=== PATIENT | male | born 1945 | race Caucasian/White ===

== ENCOUNTER 2016-03-17 09:04 | Outpatient (CLI) | payer MEDICARE, OTHER | END 2016-03-17 09:05 | disposition home or self-care (01) | DX: I10 Essential (primary) hypertension (principal); E11.9 Type 2 diabetes mellitus without complications; E78.5 Hyperlipidemia, unspecified ==

== ENCOUNTER 2016-04-19 10:09 | Outpatient (CLI) | payer MEDICARE, OTHER | END 2016-04-19 10:10 | disposition home or self-care (01) | DX: M17.0 Bilateral primary osteoarthritis of knee (principal) ==

== ENCOUNTER 2016-08-04 07:31 | Outpatient (CLI) | payer MEDICARE, OTHER ==
[2016-08-04 08:12] LABS: BILIRUBIN,URINE NEGATIVE (NEGATIVE)
[2016-08-04 08:19] LABS: WBC,URINE 0-3 /HPF (0-3)
== END 2016-08-04 07:32 | disposition home or self-care (01) ==
LOC: LAB 07:31
PROVIDERS: ATTEND Family Medicine
DX: R31.9 Hematuria, unspecified (principal); Z12.5 Encounter for screening for malignant neoplasm of prostate
CPT/HCPCS: 36415; 81001; G0103; 84153

== ENCOUNTER 2016-09-19 07:31 | Outpatient (CLI) | payer MEDICARE, OTHER ==
[2016-09-19 07:57] LABS: BILIRUBIN,URINE NEGATIVE (NEGATIVE)
[2016-09-19 08:03] LABS: WBC,URINE 0-3 /HPF (0-3)
== END 2016-09-19 07:32 | disposition home or self-care (01) ==
LOC: LAB 07:31
PROVIDERS: ATTEND Family Medicine
DX: R31.9 Hematuria, unspecified (principal); Z12.5 Encounter for screening for malignant neoplasm of prostate
CPT/HCPCS: 36415; 81001; G0103; 84153

== ENCOUNTER 2016-09-22 07:10 | Outpatient (CLI) | payer MEDICARE, OTHER ==
--- NOTE | 2016-09-22 17:19 | CT Report ---
CT CHEST WITHOUT CONTRAST: 09/22/2016 CLINICAL INDICATION: A 70-year-old with 60-pack year history of smoking, current smoker, for lung ca ncer screening. TECHNIQUE: Axial CT images of the chest were obtained without intravenous contrast, using low-dose s creening technique. COMPARISON: Previous chest CT 04/08/2013. FINDINGS: The heart and great vessels demonstrate moderate atherosclerotic calcification. No hilar or mediastinal lymphadenopathy is present. The lungs again demonstrate emphysema and peripheral fibr osis. The previously noted nodule in the anterior right upper lobe is stable, measuring 10 mm. Two stable nodules are seen in the left upper lobe, each measuring 5 mm. A stable 5 mm nodule is seen in the right posterolateral lower lobe, and stable fissural nodules are noted in the right middle lobe. Fibrosis has increased from previous. No effusion or pneumothorax is seen. Limited evaluation of upper abdominal structures demonstrates hepatic and renal cysts. The adrenal glands appear unremarka ble. Osseous structures demonstrate degenerative changes. IMPRESSION: MULTIPLE BILATERAL PULMONARY NODULES, STABLE, WITH EMPHYSEMA AND FIBROSIS. RECOMMENDATION: Continue annual screening with low-dose CT in 12 months. Lung-RADS category 2, benign findings. In accordance with CT protocol optimization, one or more of the following dose reduction techniques w ere utilized for this exam: automated exposure control, adjustment of mA and/or KV based on patient size, or use of iterative reconstructive technique. JOB #: [id number] EXT JOB #:[id number]
== END 2016-09-22 07:11 | disposition home or self-care (01) ==
LOC: DI 07:10
PROVIDERS: ATTEND Family Medicine
DX: Z12.2 Encounter for screening for malignant neoplasm of respiratory organs (principal); R91.8 Other nonspecific abnormal finding of lung field; J43.9 Emphysema, unspecified; J84.10 Pulmonary fibrosis, unspecified; F17.210 Nicotine dependence, cigarettes, uncomplicated

== ENCOUNTER 2016-11-29 08:54 | Day surgery (SDC) | payer MEDICARE, OTHER ==
[2016-11-29] MEDS ORDERED: LACTATED RINGERS 1,000 ML IV ONE (08:59)
[2016-11-29] MEDS ORDERED: fentaNYL 100 MCG/2 ML VIAL IVP ONE (09:20)
[2016-11-29] MEDS ORDERED: MIDAZOLAM 2 MG/2 ML VIAL IVP ONE (09:20)
[2016-11-29 10:56] VITALS: BP 152/68
== END 2016-11-29 08:55 | disposition home or self-care (01) ==
LOC: SDS 08:54
PROVIDERS: ATTEND Surgery
PROC: 0DBP8ZX Excision of Rectum, Via Natural or Artificial Opening Endoscopic, Diagnostic (ICD-10-PCS; 2016-11-29)
PROC: 0DBE8ZX Excision of Large Intestine, Via Natural or Artificial Opening Endoscopic, Diagnostic (ICD-10-PCS; principal; 2016-11-29 10:00)
DX: Z12.11 Encounter for screening for malignant neoplasm of colon (principal); D12.5 Benign neoplasm of sigmoid colon; D12.3 Benign neoplasm of transverse colon; K62.1 Rectal polyp; K57.30 Diverticulosis of large intestine without perforation or abscess without bleeding; I10 Essential (primary) hypertension; E11.9 Type 2 diabetes mellitus without complications; E78.5 Hyperlipidemia, unspecified; I71.4 Abdominal aortic aneurysm, without rupture; Z79.82 Long term (current) use of aspirin
CPT/HCPCS: 45380; 45384; J7120

== ENCOUNTER 2017-02-09 08:14 | Outpatient (CLI) | payer MEDICARE, OTHER ==
[2017-02-09 08:55] LABS: BASOPHILS # (AUTO) 0.1 10^3/uL (0.0-0.1); BASOPHILS % (AUTO) 0.8 %; EOSINOPHILS # (AUTO) 0.4 10^3/uL (0.0-0.7); EOSINOPHILS % (AUTO) 4.4 %; HCT - HEMATOCRIT 43.4 % (42.0-52.0); HGB - HEMOGLOBIN 15.1 g/dL (14.0-18.0); LYMPHOCYTES # (AUTO) 4.1 10^3/uL (1.5-3.5); LYMPHOCYTES % (AUTO) 48.9 %; MEAN CORPUSCULAR HEMOGLOBIN 33.7 pg (27.0-31.0); MEAN CORPUSCULAR HGB CONC 34.8 g/dL (32.0-36.0); MEAN PLATELET VOLUME 8.1 fL (7.4-11.4); MONOCYTES # (AUTO) 0.8 10^3/uL (0.0-1.0); MONOCYTES % (AUTO) 9.3 %; NEUTROPHILS # (AUTO) 3.1 10^3/uL (1.5-6.6); NEUTROPHILS % (AUTO) 36.6 %; RED BLOOD COUNT 4.48 10^6/uL (4.70-6.10); UNCORRECTED WHITE BLOOD COUNT 8.5 x10^3/uL; WHITE BLOOD COUNT 8.5 x10^3/uL (4.8-10.8)
[2017-02-09 08:56] LABS: HEMOGLOBIN A1C 0.72 g/dL
[2017-02-09 09:11] LABS: ALBUMIN/GLOBULIN RATIO 1.9 (1.0-2.2); BILIRUBIN,TOTAL 0.8 mg/dL (0.2-1.0); BUN - BLOOD UREA NITROGEN 21 mg/dL (6-20); CALCIUM 9.1 mg/dL (8.5-10.3); CARBON DIOXIDE - CO2 26 mmol/L (21-32); CHLORIDE 100 mmol/L (101-111); CHOL/HDL RATIO 2.4 (<5.0); CHOLESTEROL 135 mg/dL; CREATININE 1.1 mg/dL (0.6-1.2); GFR - MDRD 66 (>89); GLUCOSE 121 mg/dL (70-100); HDL CHOLESTEROL 56 mg/dL; LDL/HDL RATIO 1.1 (<3.6); POTASSIUM 4.3 mmol/L (3.5-5.0); SODIUM 139 mmol/L (135-145); TRIGLYCERIDES 102 mg/dL; VLDL CHOLESTEROL 20 mg/dL
[2017-02-09 09:40] LABS: PSA FREE 0.78 ng/mL (0.16-2.81)
[2017-02-09 09:41] LABS: PSA TOTAL 4.75 ng/mL (0.000-2.000)
== END 2017-02-09 08:15 | disposition home or self-care (01) ==
LOC: LAB 08:14
PROVIDERS: ATTEND Family Medicine
DX: E11.9 Type 2 diabetes mellitus without complications (principal); R97.20 Elevated prostate specific antigen [PSA]
CPT/HCPCS: 36415; 80053; 80061; 83036; 84154; 84443; 85025

== ENCOUNTER 2017-09-08 07:45 | Outpatient (CLI) | payer MEDICARE, OTHER ==
[2017-09-08 08:18] LABS: HB2 TOTAL 16.2 g/dL; HEMOGLOBIN A1C 0.79 g/dL; HEMOGLOBIN A1C % 6.6 % (4.6-6.2)
[2017-09-08 08:23] LABS: CALCIUM 8.9 mg/dL (8.5-10.3); CREATININE 1.1 mg/dL (0.6-1.2)
[2017-09-08 08:48] LABS: PSA FREE 0.64 ng/mL (0.16-2.81)
[2017-09-08 08:49] LABS: PSA TOTAL 4.93 ng/mL (0.000-2.000)
== END 2017-09-08 07:46 | disposition home or self-care (01) ==
LOC: LAB 07:45
PROVIDERS: ATTEND Family Medicine
DX: E11.9 Type 2 diabetes mellitus without complications (principal); R97.20 Elevated prostate specific antigen [PSA]
CPT/HCPCS: 36415; 80048; 82043; 83036; 84154

== ENCOUNTER 2018-03-22 08:59 | Outpatient (CLI) | payer MEDICARE, OTHER ==
[2018-03-22 09:33] LABS: ALBUMIN 4.4 g/dL (3.2-5.5); ALBUMIN/GLOBULIN RATIO 1.5 (1.0-2.2); ALKALINE PHOSPHATASE 75 IU/L (42-121); ALT ALANINE AMINOTRANSFERASE 19 IU/L (10-60); AST ASPARTATE AMINOTRANSFERASE 22 IU/L (10-42); BILIRUBIN,TOTAL 0.5 mg/dL (0.2-1.0); BUN - BLOOD UREA NITROGEN 19 mg/dL (6-20); CARBON DIOXIDE - CO2 27 mmol/L (21-32); CHLORIDE 99 mmol/L (101-111); CHOL/HDL RATIO 2.1 (<5.0); CHOLESTEROL 131 mg/dL; GFR - MDRD 73 (>89); GLUCOSE 119 mg/dL (70-100); HDL CHOLESTEROL 61 mg/dL; LDL CHOLESTEROL,CALCULATED 58 mg/dL; SODIUM 137 mmol/L (135-145); TOTAL PROTEIN 7.3 g/dL (6.7-8.2); VLDL CHOLESTEROL 12 mg/dL
[2018-03-22 09:48] LABS: BASOPHILS % (AUTO) 0.5 %; EOSINOPHILS # (AUTO) 0.3 10^3/uL (0.0-0.7); EOSINOPHILS % (AUTO) 2.6 %; HGB - HEMOGLOBIN 14.4 g/dL (14.0-18.0); LYMPHOCYTES # (AUTO) 4.5 10^3/uL (1.5-3.5); LYMPHOCYTES % (AUTO) 46.8 %; MEAN CORPUSCULAR HEMOGLOBIN 33.9 pg (27.0-31.0); MEAN CORPUSCULAR HGB CONC 34.3 g/dL (32.0-36.0); MEAN PLATELET VOLUME 8.5 fL (7.4-11.4); MONOCYTES # (AUTO) 0.7 10^3/uL (0.0-1.0); MONOCYTES % (AUTO) 7.6 %; NEUTROPHILS # (AUTO) 4.1 10^3/uL (1.5-6.6); NEUTROPHILS % (AUTO) 42.5 %; PLT - PLATELET COUNT 202 10^3/uL (130-450); RED BLOOD COUNT 4.23 10^6/uL (4.70-6.10); RED CELL DISTRIBUTION WIDTH 13.3 % (12.0-15.0); WHITE BLOOD COUNT 9.7 x10^3/uL (4.8-10.8)
[2018-03-22 19:10] LABS: HEMOGLOBIN A1C 0.65 g/dL; HEMOGLOBIN A1C % 6.1 % (4.6-6.2)
== END 2018-03-22 09:00 | disposition home or self-care (01) ==
LOC: LAB 08:59
PROVIDERS: ATTEND Family Medicine
DX: E11.9 Type 2 diabetes mellitus without complications (principal); R97.20 Elevated prostate specific antigen [PSA]
CPT/HCPCS: 36415; 80053; 80061; 83036; 83721; 84153; 85025

== ENCOUNTER 2018-03-29 10:52 | Outpatient (CLI) | payer MEDICARE, OTHER ==
--- NOTE | 2018-03-29 15:26 | CT Report ---
Reason: PULMONARY NODULE,NICOTINE ABUSE/DEPENDENCE Procedure Date: 03/29/2018 Accession Number: [id number] / [id number] Procedure: CT - Chest W/O CPT Code: FULL RESULT: EXAM: CT CHEST EXAM DATE: 03/29/2018 11:17 AM. CLINICAL HISTORY: Pulmonary nodule, nicotine abuse/dependence. COMPARISONS: 09/22/2016. TECHNIQUE: Routine helical CT imaging was performed through the chest. IV contrast: None. Reconstructions: Coronal and sagittal. In accordance with CT protocol optimization, one or more of the following dose reduction techniques were utilized for this exam: automated exposure control, adjustment of mA and/or KV based on patient size, or use of iterative reconstructive technique. FINDINGS: Lungs/Pleura: Nodules: Right upper lobe: 3 mm nodule image 19 series 4, stable. 1.1 x 0.6 cm nodule image 29, unchanged when remeasured. 7 mm, 5 mm and 4 mm nodules on image 33 are stable. Right middle lobe: 5.5 mm nodule on image 39, stable. Right lower lobe: 2 mm nodule image 46, questionably new. 6 mm nodule image 32, stable. Left upper lobe: 5 mm nodule image 24, stable. Left lower lobe: None. Lung parenchymal background demonstrates emphysematous changes and peripheral interstitial thickening suggestive of fibrosis with mild airway thickening and bronchiectasis noted in both lungs similar to prior. Mediastinum: Moderate aortic calcifications are again noted. Pulmonary artery is within normal limits for size. Heart is within normal limits for size. No suspicious mediastinal lymphadenopathy; a few mediastinal lymph nodes do not meet size criteria. Bones: Unremarkable. Visualized Abdomen: Right renal cyst and hepatic hypodensities as well as cysts. Other: None. IMPRESSION: Stability of bilateral pulmonary nodules. Recommendation: Lung RADS category 2, benign findings. Continue annual low dose screening CT. Probability of malignancy: 1-2%. [facility]
== END 2018-03-29 10:53 | disposition home or self-care (01) ==
LOC: DI 10:52
PROVIDERS: ATTEND Family Medicine
DX: R91.8 Other nonspecific abnormal finding of lung field (principal); F17.200 Nicotine dependence, unspecified, uncomplicated
CPT/HCPCS: 71250

== ENCOUNTER 2018-04-14 08:05 | Outpatient (CLI) | payer MEDICARE, OTHER ==
[2018-04-14] MEDS ORDERED: GADOBUTROL 10 MMOL/10 ML VIAL ONE (08:11)
[2018-04-14] MEDS ORDERED: GADOBUTROL 10 MMOL/10 ML VIAL IVP ONE (09:01)
--- NOTE | 2018-04-14 16:31 | MRI Report ---
Reason: UNSPECIFIED SENSORINEURAL HEARING LOSS,DIZZINESS A Procedure Date: 04/14/2018 Accession Number: [id number] / [id number] Procedure: MRI - IACS W/WO CPT Code: FULL RESULT: MRI BRAIN AND INTERNAL AUDITORY CANALS INDICATION: 72-year-old male with dizziness and hearing loss. TECHNIQUE: Imaging of the brain and internal auditory canals was performed. The following sequences were obtained: Brain: 1. T1 sagittal. 2. Axial T1 3D, FLAIR, T2* and DWI. 4. 10 mL IV Gadavist. T1 3D axial with sagittal and coronal reformations. Internal auditory canals: 1. Thin slice, fat-saturated T2 coronal. 2. Thin slice, high resolution, balanced FFE axial. 3. Thin slice, postcontrast T1 fat-saturated axial. COMPARISON: None. FINDINGS: Internal auditory canals: On the balanced FFE sequence, the vestibulocochlear nerve bundles are well seen in the CP angle cisterns and internal auditory canals bilaterally. No focal mass lesion is demonstrated. There appear to be normal fluid-filled spaces in the distribution of the cochlea and vestibule bilaterally. However, portions of the superior semicircular canal appear attenuated (for example, follow the anterior aspect of the superior semicircular canal on images 51 through 58). Similar findings are also seen in the anterior aspect of the left superior semicircular canal. There is no apparent dehiscence of either superior semicircular canal. No abnormal enlargement of either endolymphatic duct or sac is demonstrated. On postcontrast sequence, no enhancing CP angle or internal auditory canal mass lesion is demonstrated. In addition, there is no abnormal enhancement in either labyrinth. Brain: There is generalized prominence of the cerebral cortical sulci and cerebellar folia, considered within normal limits for stated age. There is mild to moderate ex vacuo enlargement of the third and lateral ventricles. A mild to moderate amount of white matter disease is identified in the supratentorial brain, manifested as focal and confluent T2 hyperintensities that are scattered throughout the periventricular, deep and subcortical white matter bilaterally. A frontoparietal distribution predominates. There appears to be minor, patchy T2 hyperintensity in the hailey bilaterally. 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 Flow voids are demonstrated in the main intracranial arteries. No abnormal diffusion restriction is demonstrated. No evidence of an acute or chronic hemorrhage on T2* GRE sequence. No enhancing space-occupying mass lesion is demonstrated. No pathologic meningeal or cranial nerve enhancement is identified. There appears to be normal intravascular contrast enhancement in the dural venous sinuses and deep venous structures. Of note, there is thin curvilinear enhancement, laterally in left parietal lobe (see images 71 through 70 of series 1102). This probably relates to a small developmental venous anomaly. The clinical significance is doubtful. There is no evidence of a prior hemorrhage or associated cavernous malformation on the T2* GRE sequence. Limited evaluation of the orbits reveals no gross pathology. There is mild mucosal thickening scattered throughout the ethmoid air cells. The paranasal sinuses are otherwise clear. No mastoid or middle ear effusion. IMPRESSION: 1. There is apparent attenuation of the superior semicircular canals bilaterally. This may be artifactual. Normal fluid-filled spaces are seen in the distribution of the cochlea and vestibules. However, the possibility of labyrinthine ossificans cannot be excluded. Consider further assessment with temporal bone CT. 2. Imaging of the internal auditory canals is otherwise unremarkable. In particular, there is no evidence of a vestibular schwannoma. 3. Multifocal white matter disease is identified as described, likely representing chronic microangiopathy. 4. Imaging of the brain is otherwise unremarkable. No evidence of infarction, hemorrhage, space-occupying mass lesion or other acute intracranial abnormality.
== END 2018-04-14 08:06 | disposition home or self-care (01) ==
LOC: DI 08:05
PROVIDERS: ATTEND Otolaryngology
DX: H90.5 Unspecified sensorineural hearing loss (principal); R42 Dizziness and giddiness; R90.82 White matter disease, unspecified
CPT/HCPCS: 70543; A9585

== ENCOUNTER 2018-11-16 07:38 | Outpatient (CLI) | payer MEDICARE, OTHER ==
[2018-11-16 07:51] LABS: BASOPHILS # (AUTO) 0.1 10^3/uL (0.0-0.1); BASOPHILS % (AUTO) 0.7 %; EOSINOPHILS # (AUTO) 0.4 10^3/uL (0.0-0.7); HGB - HEMOGLOBIN 14.3 g/dL (14.0-18.0); LYMPHOCYTES # (AUTO) 4.3 10^3/uL (1.5-3.5); LYMPHOCYTES % (AUTO) 48.4 %; MEAN CORPUSCULAR HGB CONC 34.4 g/dL (32.0-36.0); MEAN PLATELET VOLUME 9.5 fL (7.4-11.4); MONOCYTES % (AUTO) 11.2 %; NEUTROPHILS # (AUTO) 3.1 10^3/uL (1.5-6.6); NEUTROPHILS % (AUTO) 35.4 %; PLT - PLATELET COUNT 158 10^3/uL (130-450); RED CELL DISTRIBUTION WIDTH 12.9 % (12.0-15.0); WHITE BLOOD COUNT 8.8 x10^3/uL (4.8-10.8)
[2018-11-16 08:13] LABS: ALBUMIN 4.1 g/dL (3.2-5.5); ALBUMIN/GLOBULIN RATIO 1.5 (1.0-2.2); ALKALINE PHOSPHATASE 67 IU/L (42-121); ALT ALANINE AMINOTRANSFERASE 18 IU/L (10-60); AST ASPARTATE AMINOTRANSFERASE 22 IU/L (10-42); BILIRUBIN,TOTAL 0.7 mg/dL (0.2-1.0); BUN - BLOOD UREA NITROGEN 19 mg/dL (6-20); CARBON DIOXIDE - CO2 28 mmol/L (21-32); CHLORIDE 105 mmol/L (101-111); CHOL/HDL RATIO 2.4 (<5.0); CHOLESTEROL 123 mg/dL; CREATININE 0.9 mg/dL (0.6-1.2); GFR - MDRD 83 (>89); GLUCOSE 111 mg/dL (70-100); HDL CHOLESTEROL 52 mg/dL; LDL CHOLESTEROL,CALCULATED 59 mg/dL; LDL/HDL RATIO 1.1 (<3.6); SODIUM 141 mmol/L (135-145); TOTAL PROTEIN 6.9 g/dL (6.7-8.2); VLDL CHOLESTEROL 12 mg/dL
[2018-11-16 08:36] LABS: HB2 TOTAL 14.4 g/dL; HEMOGLOBIN A1C 0.63 g/dL; HEMOGLOBIN A1C % 6.2 % (4.6-6.2)
[2018-11-16 08:39] LABS: CREATININE,URINE 48.3 mg/dL; MICROALBUM/CREATININE RATIO,UR 8.3 ug/mg (<30.0); MICROALBUMIN,URINE 0.4 mg/dL (0-300.0)
== END 2018-11-16 07:39 | disposition home or self-care (01) ==
LOC: LAB 07:38
PROVIDERS: ATTEND Family Medicine
DX: I10 Essential (primary) hypertension (principal); E11.9 Type 2 diabetes mellitus without complications; E78.5 Hyperlipidemia, unspecified
CPT/HCPCS: 36415; 80053; 80061; 82043; 82570; 83036; 83721; 84443; 85025

== ENCOUNTER 2019-05-21 08:17 | Outpatient (CLI) | payer MEDICARE, OTHER ==
[2019-05-21 08:55] LABS: CALCIUM 8.9 mg/dL (8.5-10.3); CREATININE 0.9 mg/dL (0.6-1.2)
[2019-05-21 09:04] LABS: HEMOGLOBIN A1C 0.61 g/dL; HEMOGLOBIN A1C % 5.9 % (4.6-6.2)
== END 2019-05-21 08:18 | disposition home or self-care (01) ==
LOC: LAB 08:17
PROVIDERS: ATTEND Family Medicine
DX: E11.9 Type 2 diabetes mellitus without complications (principal)
CPT/HCPCS: 36415; 80048; 83036

== ENCOUNTER 2019-09-09 09:33 | Outpatient (CLI) | payer MEDICARE, OTHER ==
--- NOTE | 2019-09-09 15:11 | CT Report ---
PROCEDURE: Low Dose Lung Cancer Screen INDICATIONS: PULMONARY NODULE TECHNIQUE: Noncontrast low-dose 5 mm thick sections acquired from the pulmonary apices to the posterior costophr enic angles. 7 mm thick coronal and sagittal MIP reformats were then acquired. For radiation dose r eduction, the following was used: automated exposure control, adjustment of mA and/or kV according t o patient size. COMPARISON: 03/29/2018 CT scan, also, 09/22/2016. Prior CT scanning showing scattered bilateral lung n odules stable from 2017. No new nodule has developed. FINDINGS: Image quality: Excellent. Lungs and pleura: Centrilobular emphysema is again noted, consistent with prior smoking history. Wit hin the lung parenchyma the previously identified small pulmonary nodules have each remained unchange d from the comparison study in February 2018. These were also stable over time from 09/22/2016 CT scann ing. Mediastinum: Heart size is normal. No pericardial effusion. No mediastinal adenopathy by size crit eria. Thoracic aorta and central pulmonary arteries are normal in size. Esophagus is normal in lana silvia. No hiatal hernia. Bones and chest wall: No suspicious bony lesions. No vertebral body compression fractures. No axil cate or supraclavicular adenopathy by size criteria. The thyroid is normal in size. Abdomen: Visualized upper abdomen solid organs and bowel loops appear normal in the absence of contr ast. IMPRESSION: Stable small benign appearing bilateral pulmonary nodules from 09/22/2018 considering slight differenc es in scan level and angulation. The largest nodule found is stable over time at the subpleural anter ior right upper lobe measuring approximately 6 x 11 mm. No additional follow-up of pulmonary nodules is recommended. Depending on the clinical status of the patient and rolling the patient in a yearly low-dose screening CT scan program for early detection of lung carcinoma may be warranted. Reviewed by: Christos Browne MD on 09/09/2019 3:10 PM PDT Approved by: Christos Browne MD on 09/09/2019 3:10 PM PDT Station ID: [id number]
== END 2019-09-09 09:34 | disposition home or self-care (01) ==
LOC: DI 09:33
PROVIDERS: ATTEND Family Medicine
DX: Z12.2 Encounter for screening for malignant neoplasm of respiratory organs (principal); R91.8 Other nonspecific abnormal finding of lung field; F17.210 Nicotine dependence, cigarettes, uncomplicated
CPT/HCPCS: G0297 ×2

== ENCOUNTER 2020-05-18 07:39 | Outpatient (CLI) | payer MEDICARE, OTHER ==
[2020-05-18 07:54] LABS: BASOPHILS % (AUTO) 0.7 %; EOSINOPHILS % (AUTO) 2.7 %; HCT - HEMATOCRIT 42.8 % (42.0-52.0); HGB - HEMOGLOBIN 14.3 g/dL (14.0-18.0); MEAN CORPUSCULAR HEMOGLOBIN 34.2 pg (27.0-31.0); MEAN CORPUSCULAR HGB CONC 33.4 g/dL (32.0-36.0); MEAN CORPUSCULAR VOLUME 102.4 fL (80.0-94.0); MONOCYTES % (AUTO) 8.9 %; NEUTROPHILS % (AUTO) 34.5 %; PLT - PLATELET COUNT 171 10^3/uL (130-450); RED BLOOD COUNT 4.18 10^6/uL (4.70-6.10); RED CELL DISTRIBUTION WIDTH 13.2 % (12.0-15.0); WHITE BLOOD COUNT 10.6 x10^3/uL (4.8-10.8)
[2020-05-18 07:56] LABS: SLIDE REVIEW? Indicated
[2020-05-18 08:10] LABS: ALBUMIN 4.5 g/dL (3.2-5.5); ALBUMIN/GLOBULIN RATIO 1.8 (1.0-2.2); ALKALINE PHOSPHATASE 60 IU/L (42-121); ALT ALANINE AMINOTRANSFERASE 18 IU/L (10-60); AST ASPARTATE AMINOTRANSFERASE 20 IU/L (10-42); BILIRUBIN,TOTAL 0.5 mg/dL (0.2-1.0); BUN - BLOOD UREA NITROGEN 23 mg/dL (6-20); CALCIUM 9.2 mg/dL (8.5-10.3); CARBON DIOXIDE - CO2 27 mmol/L (21-32); CHLORIDE 105 mmol/L (101-111); CHOL/HDL RATIO 2.4 (<5.0); CHOLESTEROL 156 mg/dL; CREATININE 1.1 mg/dL (0.6-1.2); GFR - MDRD 65 (>89); GLUCOSE 116 mg/dL (70-100); HDL CHOLESTEROL 64 mg/dL; LDL CHOLESTEROL,CALCULATED 80 mg/dL; LDL/HDL RATIO 1.3 (<3.6); POTASSIUM 4.4 mmol/L (3.5-5.0); SODIUM 141 mmol/L (135-145); TRIGLYCERIDES 60 mg/dL; VLDL CHOLESTEROL 12 mg/dL
[2020-05-18 08:19] LABS: ABNORMAL LYMPHS % (MANUAL) 0 %; BAND NEUTROPHILS % (MANUAL) 0 %
[2020-05-18 08:22] LABS: EOSINOPHILS # (MANUAL) 0.3 10^3/uL (0-0.7); LYMPHOCYTES # (MANUAL) 5.9 10^3/uL (1.5-3.5); LYMPHOCYTES % (MANUAL) 53 %; MONOCYTES # (MANUAL) 0.4 10^3/uL (0.0-1.0); NEUTROPHILS # (MANUAL) 3.9 10^3/uL (1.5-6.6); PLATELET ESTIMATE, MANUAL NORMAL (130-450,000) (NORMAL); PLATELET MORPHOLOGY NORMAL APPEARANCE (NORMAL); RBC MORPHOLOGY (MULTIPLE) NORMAL APPEARANCE (NORMAL); REACTIVE LYMPHS % (MANUAL) 3 %
[2020-05-18 08:23] LABS: DIFFERENTIAL COMMENT MANUAL DIFFERENTIAL
[2020-05-18 12:12] LABS: ESTIMATED AVERAGE GLUCOSE 131 mg/dL (70-100); HEMOGLOBIN A1c% 6.2 % (4.27-6.07)
== END 2020-05-18 07:40 | disposition home or self-care (01) ==
LOC: LAB 07:39
PROVIDERS: ATTEND Family Medicine
DX: E11.9 Type 2 diabetes mellitus without complications (principal)
CPT/HCPCS: 36415; 80053; 80061; 83036; 83721; 85025

== ENCOUNTER 2020-10-30 16:13 | Outpatient (CLI) | payer MEDICARE, OTHER ==
[2020-10-30 17:54] LABS: CALCIUM 8.8 mg/dL (8.5-10.3); CREATININE 0.9 mg/dL (0.6-1.2); POTASSIUM 4.2 mmol/L (3.5-5.0)
[2020-10-30 20:26] LABS: ESTIMATED AVERAGE GLUCOSE 140 mg/dL (70-100); HEMOGLOBIN A1c% 6.5 % (4.27-6.07)
== END 2020-10-30 23:59 | disposition home or self-care (01) ==
LOC: LAB.N 16:13
PROVIDERS: ATTEND Family Medicine
DX: E11.9 Type 2 diabetes mellitus without complications (principal)
CPT/HCPCS: 36415; 80048; 83036

== ENCOUNTER 2021-01-20 07:38 | Outpatient (CLI) | payer MEDICARE, OTHER ==
[2021-01-20 08:12] LABS: BASOPHILS # (AUTO) 0.1 10^3/uL (0.0-0.1); BASOPHILS % (AUTO) 0.6 %; EOSINOPHILS # (AUTO) 0.3 10^3/uL (0.0-0.7); EOSINOPHILS % (AUTO) 2.8 %; HCT - HEMATOCRIT 41.3 % (42.0-52.0); HGB - HEMOGLOBIN 13.9 g/dL (14.0-18.0); LYMPHOCYTES # (AUTO) 4.3 10^3/uL (1.5-3.5); LYMPHOCYTES % (AUTO) 42.9 %; MEAN CORPUSCULAR HEMOGLOBIN 33.8 pg (27.0-31.0); MEAN CORPUSCULAR HGB CONC 33.7 g/dL (32.0-36.0); MEAN CORPUSCULAR VOLUME 100.5 fL (80.0-94.0); MEAN PLATELET VOLUME 9.6 fL (7.4-11.4); MONOCYTES # (AUTO) 1.3 10^3/uL (0.0-1.0); MONOCYTES % (AUTO) 12.4 %; NEUTROPHILS # (AUTO) 4.2 10^3/uL (1.5-6.6); PLT - PLATELET COUNT 191 10^3/uL (130-450); RED BLOOD COUNT 4.11 10^6/uL (4.70-6.10); RED CELL DISTRIBUTION WIDTH 13.5 % (12.0-15.0); WHITE BLOOD COUNT 10.1 x10^3/uL (4.8-10.8)
[2021-01-20 08:29] LABS: ALBUMIN 4.1 g/dL (3.2-5.5); ALBUMIN/GLOBULIN RATIO 1.5 (1.0-2.2); ALKALINE PHOSPHATASE 63 IU/L (42-121); ALT ALANINE AMINOTRANSFERASE 29 IU/L (10-60); AST ASPARTATE AMINOTRANSFERASE 23 IU/L (10-42); BILIRUBIN,TOTAL 0.7 mg/dL (0.2-1.0); BUN - BLOOD UREA NITROGEN 15 mg/dL (6-20); CALCIUM 9.1 mg/dL (8.5-10.3); CARBON DIOXIDE - CO2 28 mmol/L (21-32); CHLORIDE 104 mmol/L (101-111); CHOL/HDL RATIO 2.3 (<5.0); CHOLESTEROL 141 mg/dL; CREATININE 0.9 mg/dL (0.6-1.2); GFR - MDRD 82 (>89); GLUCOSE 121 mg/dL (70-100); HDL CHOLESTEROL 61 mg/dL; LDL CHOLESTEROL,CALCULATED 63 mg/dL; POTASSIUM 4.1 mmol/L (3.5-5.0); SODIUM 142 mmol/L (135-145); TOTAL PROTEIN 6.8 g/dL (6.7-8.2); TRIGLYCERIDES 86 mg/dL; VLDL CHOLESTEROL 17 mg/dL
[2021-01-20 09:01] LABS: PSA TOTAL 8.5 ng/mL (0.000-2.000)
[2021-01-20 09:35] LABS: ESTIMATED AVERAGE GLUCOSE 140 mg/dL (70-100); HEMOGLOBIN A1c% 6.5 % (4.27-6.07)
[2021-03-12 10:10] LABS: PSA SCREEN (Z12.5) 8.5 ng/mL (0.000-2.000)
== END 2021-01-20 07:39 | disposition home or self-care (01) ==
LOC: LAB 07:38
PROVIDERS: ATTEND Family Medicine
DX: E11.9 Type 2 diabetes mellitus without complications (principal); Z12.5 Encounter for screening for malignant neoplasm of prostate
CPT/HCPCS: 36415; 80053; 80061; 83036; 85025; G0103; 83721; 84153

== ENCOUNTER 2022-01-24 07:35 | Outpatient (CLI) | payer MEDICARE, OTHER ==
[2022-01-24 07:57] LABS: BASOPHILS # (AUTO) 0.1 10^3/uL (0.0-0.1); BASOPHILS % (AUTO) 0.7 %; EOSINOPHILS # (AUTO) 0.3 10^3/uL (0.0-0.7); EOSINOPHILS % (AUTO) 2.8 %; HGB - HEMOGLOBIN 14.5 g/dL (14.0-18.0); LYMPHOCYTES # (AUTO) 6.2 10^3/uL (1.5-3.5); LYMPHOCYTES % (AUTO) 54.9 %; MEAN CORPUSCULAR VOLUME 100.2 fL (80.0-94.0); MEAN PLATELET VOLUME 9.7 fL (7.4-11.4); MONOCYTES # (AUTO) 0.9 10^3/uL (0.0-1.0); MONOCYTES % (AUTO) 7.5 %; NEUTROPHILS # (AUTO) 3.8 10^3/uL (1.5-6.6); PLT - PLATELET COUNT 184 10^3/uL (130-450); RED BLOOD COUNT 4.39 10^6/uL (4.70-6.10); RED CELL DISTRIBUTION WIDTH 13.2 % (12.0-15.0); WHITE BLOOD COUNT 11.3 x10^3/uL (4.8-10.8)
[2022-01-24 07:58] LABS: SLIDE REVIEW? Indicated
[2022-01-24 08:06] LABS: CREATININE,URINE 103.9 mg/dL; MICROALBUM/CREATININE RATIO,UR 3.8 ug/mg (<30.0); MICROALBUMIN,URINE 0.4 mg/dL (0-300.0)
[2022-01-24 08:17] LABS: ALBUMIN 4.4 g/dL (3.2-5.5); ALBUMIN/GLOBULIN RATIO 1.7 (1.0-2.2); ALKALINE PHOSPHATASE 66 IU/L (42-121); ALT ALANINE AMINOTRANSFERASE 19 IU/L (10-60); AST ASPARTATE AMINOTRANSFERASE 20 IU/L (10-42); BILIRUBIN,TOTAL 0.7 mg/dL (0.2-1.0); BUN - BLOOD UREA NITROGEN 22 mg/dL (6-20); CALCIUM 9.3 mg/dL (8.5-10.3); CARBON DIOXIDE - CO2 30 mmol/L (21-32); CHLORIDE 102 mmol/L (101-111); CHOL/HDL RATIO 2.4 (<5.0); CHOLESTEROL 152 mg/dL; GFR - MDRD 72 (>89); GLUCOSE 113 mg/dL (70-100); HDL CHOLESTEROL 63 mg/dL; LDL CHOLESTEROL,CALCULATED 71 mg/dL; LDL/HDL RATIO 1.1 (<3.6); POTASSIUM 4.1 mmol/L (3.5-5.0); SODIUM 140 mmol/L (135-145); TRIGLYCERIDES 90 mg/dL; VLDL CHOLESTEROL 18 mg/dL
[2022-01-24 08:27] LABS: THYROID STIMULATING HORMONE 0.99 uIU/mL (0.34-5.60)
[2022-01-24 08:36] LABS: PLATELET ESTIMATE, MANUAL NORMAL (130-450,000) (NORMAL); PLATELET MORPHOLOGY NORMAL APPEARANCE (NORMAL); RBC MORPHOLOGY (MULTIPLE) NORMAL APPEARANCE (NORMAL)
--- NOTE | 2022-01-24 10:38 | XRAY Report ---
PROCEDURE: Lumbar Spine 2 View INDICATIONS: DEGENERATIVE JOINT DISEASE TECHNIQUE: 3 views of the lumbar spine were acquired. COMPARISON: CT abdomen/pelvis 04/08/2013. FINDINGS: Bones: 5 [id number] vertebrae are present. There is mild 3 mm grade 1 retrolisthesis of L1 on L 2 and L2 on L3. No vertebral body compression fractures. No suspicious bony lesions. Multilevel dis c space narrowing and degenerative endplate changes are seen that are most prominent at the L5-S1 lev el. There is multilevel facet hypertrophy. Soft tissues: Overlying bowel gas pattern is normal. No suspicious soft tissue calcifications. Aor tic other scattered calcifications are present. IMPRESSION: 1.No acute osseous abnormality. If symptoms persist or there is continued clinical concern, further e valuation with MRI or CT may be helpful. 2.Moderate multilevel spondylosis. 3.Mild degenerative retrolistheses of L1 on L2 and of L2 on L3. Reviewed by: Lui Velásquez MD on 01/24/2022 10:37 AM PST Approved by: Lui Velásquez MD on 01/24/2022 10:37 AM PST Station ID: [id number]
[2022-01-24 11:42] LABS: ESTIMATED AVERAGE GLUCOSE 134 mg/dL (70-100); HEMOGLOBIN A1c% 6.3 % (4.27-6.07)
== END 2022-01-24 07:36 | disposition home or self-care (01) ==
LOC: DI 07:35 → LAB 07:36
PROVIDERS: ATTEND Internal Medicine
DX: E11.9 Type 2 diabetes mellitus without complications (principal); I10 Essential (primary) hypertension; E78.5 Hyperlipidemia, unspecified; Z13.29 Encounter for screening for other suspected endocrine disorder; M47.816 Spondylosis without myelopathy or radiculopathy, lumbar region; M47.817 Spondylosis without myelopathy or radiculopathy, lumbosacral region; M43.16 Spondylolisthesis, lumbar region
CPT/HCPCS: 36415; 80053; 80061; 82043; 82570; 83036; 83721; 84443; 85025

== ENCOUNTER 2022-08-31 07:18 | Outpatient (CLI) | payer MEDICARE, OTHER ==
[2022-08-31 07:36] LABS: CALCIUM 8.9 mg/dL (8.5-10.3); CREATININE 0.9 mg/dL (0.6-1.2); POTASSIUM 4.2 mmol/L (3.5-5.0)
[2022-08-31 10:39] LABS: ESTIMATED AVERAGE GLUCOSE 137 mg/dL (70-100); HEMOGLOBIN A1c% 6.4 % (4.27-6.07)
== END 2022-08-31 07:19 | disposition home or self-care (01) ==
LOC: LAB 07:18
PROVIDERS: ATTEND Internal Medicine
DX: E11.9 Type 2 diabetes mellitus without complications (principal)
CPT/HCPCS: 36415; 80048; 83036

== ENCOUNTER 2023-01-18 07:36 | Outpatient (CLI) | payer MEDICARE, OTHER ==
[2023-01-18 07:51] LABS: BASOPHILS # (AUTO) 0.1 10^3/uL (0.0-0.1); BASOPHILS % (AUTO) 0.8 %; EOSINOPHILS # (AUTO) 0.2 10^3/uL (0.0-0.7); EOSINOPHILS % (AUTO) 1.7 %; HCT - HEMATOCRIT 43.5 % (42.0-52.0); HGB - HEMOGLOBIN 13.9 g/dL (14.0-18.0); LYMPHOCYTES # (AUTO) 4.4 10^3/uL (1.5-3.5); LYMPHOCYTES % (AUTO) 43.6 %; MEAN CORPUSCULAR HEMOGLOBIN 32.6 pg (27.0-31.0); MEAN CORPUSCULAR VOLUME 101.9 fL (80.0-94.0); MEAN PLATELET VOLUME 9.4 fL (7.4-11.4); MONOCYTES # (AUTO) 1.2 10^3/uL (0.0-1.0); MONOCYTES % (AUTO) 11.9 %; NEUTROPHILS # (AUTO) 4.2 10^3/uL (1.5-6.6); NEUTROPHILS % (AUTO) 41.8 %; PLT - PLATELET COUNT 180 10^3/uL (130-450); RED BLOOD COUNT 4.27 10^6/uL (4.70-6.10); RED CELL DISTRIBUTION WIDTH 14.1 % (12.0-15.0); WHITE BLOOD COUNT 10.1 x10^3/uL (4.8-10.8)
[2023-01-18 08:01] LABS: CREATININE,URINE 48.4 mg/dL; MICROALBUMIN,URINE < 0.7 mg/dL
[2023-01-18 08:06] LABS: ALBUMIN 4.4 g/dL (3.2-5.5); ALBUMIN/GLOBULIN RATIO 2.3 (1.0-2.2); ALKALINE PHOSPHATASE 74 IU/L (42-121); ALT ALANINE AMINOTRANSFERASE 17 IU/L (10-60); AST ASPARTATE AMINOTRANSFERASE 18 IU/L (10-42); BILIRUBIN,TOTAL 0.6 mg/dL (0.2-1.0); BUN - BLOOD UREA NITROGEN 24 mg/dL (6-20); CALCIUM 9.3 mg/dL (8.5-10.3); CARBON DIOXIDE - CO2 29 mmol/L (21-32); CHLORIDE 103 mmol/L (101-111); CHOL/HDL RATIO 2.2 (<5.0); CHOLESTEROL 134 mg/dL; GFR - MDRD 72 (>89); GLUCOSE 96 mg/dL (74-104); HDL CHOLESTEROL 62 mg/dL; LDL CHOLESTEROL,CALCULATED 54 mg/dL; LDL/HDL RATIO 0.9 (<3.6); POTASSIUM 4.4 mmol/L (3.5-4.5); SODIUM 140 mmol/L (135-145); TOTAL PROTEIN 6.3 g/dL (6.4-8.9); TRIGLYCERIDES 88 mg/dL (48-352); VLDL CHOLESTEROL 18 mg/dL
[2023-01-18 10:22] LABS: ESTIMATED AVERAGE GLUCOSE 131 mg/dL (70-100); HEMOGLOBIN A1c% 6.2 % (4.27-6.07)
== END 2023-01-18 07:37 | disposition home or self-care (01) ==
LOC: LAB 07:36
PROVIDERS: ATTEND Internal Medicine
DX: E78.5 Hyperlipidemia, unspecified (principal); E11.9 Type 2 diabetes mellitus without complications; I10 Essential (primary) hypertension
CPT/HCPCS: 36415; 80053; 80061; 82043; 82570; 83036; 83721; 85025

== ENCOUNTER 2023-01-18 07:49 | Outpatient (CLI) | payer MEDICARE, OTHER ==
--- NOTE | 2023-01-18 12:54 | CT Report ---
PROCEDURE: Low Dose Lung Cancer Screen INDICATIONS: HIST OF TOBACCO USE TECHNIQUE: A CT scan of the chest was performed. Intravenous contrast media was not administered. Images were re corded and evaluated at appropriate window settings. Reformats: axial MIP of the chest, coronal and s agittal. For radiation dose reduction, the following was used: automated exposure control, adjustment of mA and/or kV according to patient size. COMPARISON: 02/10/2022 FINDINGS: Image quality: Good allowing for low radiation dose Lungs and pleura:Emphysematous changes and scattered scarring. Peripheral reticulation. Overall patte rn is similar compared to 2022. No new or enlarging nodules. Multiple small nodules and granulomas ap pear unchanged. Mediastinum, heart, and esophagus: No hiatal hernia. There are coronary calcifications. There are berry ular calcifications. Possible lipomatous hypertrophy of the interatrial septum. No pathologic lymphad enopathy by size criteria. Chest wall and thyroid: Mild gynecomastia Upper abdomen: There are liver cysts. Partially visualized upper abdomen is unremarkable on this nonc ontrast low-dose study otherwise. Colonic diverticula are also seen. Bones: No acute or suspicious osseous finding. IMPRESSION: Lung RADS 2: Continue annual screening. There are coronary calcifications. Unchanged appearance of the lungs, including scarring, reticulatio n, and emphysema. Reviewed by: Raghav Lai MD on 01/18/2023 12:52 PM PST Approved by: Raghav Lai MD on 01/18/2023 12:52 PM PST Station ID: [id number]
== END 2023-01-18 07:50 | disposition home or self-care (01) ==
LOC: DI 07:49
PROVIDERS: ATTEND Internal Medicine
DX: Z12.2 Encounter for screening for malignant neoplasm of respiratory organs (principal); Z87.891 Personal history of nicotine dependence; I25.10 Atherosclerotic heart disease of native coronary artery without angina pectoris; J43.9 Emphysema, unspecified; J98.4 Other disorders of lung; J84.89 Other specified interstitial pulmonary diseases; E78.5 Hyperlipidemia, unspecified; E11.9 Type 2 diabetes mellitus without complications; I10 Essential (primary) hypertension
CPT/HCPCS: 36415; 80053; 80061; 82043; 82570; 83036; 83721; 85025

== ENCOUNTER 2023-03-15 09:44 | Observation (INO) | payer MEDICARE, OTHER ==
[2023-03-15 10:23] LABS: BASOPHILS # (AUTO) 0.1 10^3/uL (0.0-0.1); BASOPHILS % (AUTO) 0.7 %; EOSINOPHILS # (AUTO) 0.1 10^3/uL (0.0-0.7); HCT - HEMATOCRIT 42.6 % (42.0-52.0); HGB - HEMOGLOBIN 13.5 g/dL (14.0-18.0); LYMPHOCYTES # (AUTO) 3.1 10^3/uL (1.5-3.5); LYMPHOCYTES % (AUTO) 30.3 %; MEAN CORPUSCULAR HEMOGLOBIN 31.8 pg (27.0-31.0); MEAN CORPUSCULAR HGB CONC 31.7 g/dL (32.0-36.0); MEAN CORPUSCULAR VOLUME 100.5 fL (80.0-94.0); MEAN PLATELET VOLUME 9.4 fL (7.4-11.4); MONOCYTES # (AUTO) 0.8 10^3/uL (0.0-1.0); MONOCYTES % (AUTO) 7.4 %; NEUTROPHILS # (AUTO) 6.2 10^3/uL (1.5-6.6); NEUTROPHILS % (AUTO) 60.1 %; PLT - PLATELET COUNT 187 10^3/uL (130-450); RED BLOOD COUNT 4.24 10^6/uL (4.70-6.10); RED CELL DISTRIBUTION WIDTH 13.6 % (12.0-15.0); WHITE BLOOD COUNT 10.3 x10^3/uL (4.8-10.8)
[2023-03-15 10:37] LABS: ALBUMIN 4.2 g/dL (3.2-5.5); ALBUMIN/GLOBULIN RATIO 1.9 (1.0-2.2); BILIRUBIN,TOTAL 0.6 mg/dL (0.2-1.0); CALCIUM 9.1 mg/dL (8.5-10.3); CREATININE 0.8 mg/dL (0.6-1.3); POTASSIUM 3.9 mmol/L (3.5-4.5); TOTAL PROTEIN 6.4 g/dL (6.4-8.9)
[2023-03-15] MEDS ORDERED: FUROSEMIDE 40 MG/4 ML VIAL IVP STA (11:01)
[2023-03-15 11:16] LABS: B. PARAPERTUSSIS- RESP PCR PAN NOT DETECTED; B. PERTUSSIS- RESP PCR PANEL NOT DETECTED; C. PNEUMONIAE- RESP PCR PANEL NOT DETECTED; CORONAVIRUS 229E-RESP PCR NOT DETECTED; CORONAVIRUS HKU1-RESP PCR NOT DETECTED; CORONAVIRUS NL63-RESP PCR NOT DETECTED; CORONAVIRUS OC43-RESP PCR NOT DETECTED; HUMAN METAPNEUMOVIRUS NOT DETECTED; INFLUENZA A- RESP PCR PANEL NOT DETECTED; INFLUENZA B - RESP PCR PANEL NOT DETECTED; M. PNEUMONIAE- RESP PCR PANEL NOT DETECTED; PARAINFLUENZA VIRUS 1 NOT DETECTED; PARAINFLUENZA VIRUS 2 NOT DETECTED; PARAINFLUENZA VIRUS 3 NOT DETECTED; PARAINFLUENZA VIRUS 4 NOT DETECTED; RHINOVIRUS/ENTEROVIRUS NOT DETECTED; RSV- RESP PCR PANEL NOT DETECTED; SARS-CoV-2 -RESP PCR PANEL NOT DETECTED
--- NOTE | 2023-03-15 11:24 | XRAY Report ---
PROCEDURE: Chest 1V INDICATIONS: SOA TECHNIQUE: One view of the chest was acquired. COMPARISON: None. FINDINGS: Surgical changes and devices: None. Lungs and pleura: No pleural effusions or pneumothorax. Mild diffuse reticulonodular pulmonary opaci ty. Mediastinum: Mediastinal contours appear normal. Heart size is enlarged. Bones and chest wall: No suspicious bony lesions. Overlying soft tissues appear unremarkable. IMPRESSION: Mild edema versus atypical pneumonia. Reviewed by: Sirisha Lopez MD on 03/15/2023 11:22 AM [facility] Approved by: Sirisha Lopez MD on 03/15/2023 11:22 AM [facility] Station ID: [id number]
--- NOTE | 2023-03-15 11:37 | ED Physician Documentation ---
PD HPI DYSPNEA - Stated complaint Stated Complaint: LEG SWELLING/LOW O2 - Chief complaint Chief Complaint: Resp - History obtained from History obtained from: Patient - Additional information Additional information: Patient is a 77-year-old male presenting for evaluation of worsening shortness of breath over the past 2 months and also noticing increased leg swelling for the past 10 days. Patient is normally on oxygen 2 to 3 L at home. He has had a continued cough which is productive of clear phlegm which he states is unchanged. He has never been on a diuretic.Denies recent travel or immobiliza tion. Does not take a blood thinner. Review of Systems Constitutional: denies: Fever Cardiac: denies: Chest pain / pressure Respiratory: reports: Dyspnea, Cough GI: denies: Abdominal Pain, Vomiting : denies: Dysuria Musculoskeletal: reports: Extremity swelling PD PAST MEDICAL HISTORY - Past Medical History Past Medical History: Yes Cardiovascular: Hypertension, High cholesterol, [place] Respiratory: COPD Endocrine/Autoimmune: Type 2 diabetes : Benign prostate hypertrophy Psych: None Musculoskeletal: Osteoarthritis Derm: None - Past Surgical History Past Surgical History: Yes General: Colonoscopy HEENT: Tonsil/Adenoidectomy - Present Medications Home Medications: Ambulatory Orders Medication Instructions Recorded Confirmed Aspirin 1 tab ORAL DAILY 11/28/16 03/15/23 Atorvastatin Calcium [Lipitor] 0.5 tab ORAL DAILY 11/28/16 03/15/23 Niacin [Niaspan] 1 tab ORAL DAILY 11/28/16 03/15/23 [place] 1 tab ORAL DAILY 11/28/16 03/15/23 lisinopriL [Lisinopril] 1 tab ORAL DAILY 11/28/16 03/15/23 metFORMIN [Glucophage] 1 tab ORAL BID 11/28/16 03/15/23 Finasteride [Proscar] 5 mg PO DAILY 03/15/23 03/15/23 dilTIAZem HCL [Diltiazem 24Hr ER] 120 mg PO DAILY 03/15/23 03/15/23 - Allergies Allergies/Adverse Reactions: Allergies Allergy/AdvReac Type Severity Reaction Status Date / Time No Known Drug Allergies Allergy Verified 03/15/23 09:48 - Social History Does the pt smoke?: Yes Smoking Status: Former smoker Does the pt drink ETOH?: No Does the pt have substance abuse?: No - Immunizations Immunizations are current?: Yes PD ED PE NORMAL - General General: Alert and oriented X 3, No acute distress, Well developed/nourished - HEENT HEENT: Atraumatic - Neck Neck: Supple, no meningeal sign - Cardiac Cardiac: RRR, Strong equal pulses - Respiratory Respiratory: No respiratory distress, Other (Bibasilar crackles) - Abdomen Abdomen: Normal bowel sounds, Soft, Non tender, Non distended - Extremities Extremities: No calf tenderness / cord, Other (Bilateral lower extremity edema) - Neuro Neuro: Alert and oriented X 3, No motor deficit, Normal speech Results - Vitals Vitals: Vital Signs - 24 hr 03/15/23 03/15/23 03/15/23 09:48 10:41 12:00 Temperature 36.8 C Heart Rate 82 89 75 Respiratory 16 20 222 H Rate Blood Pressure 140/65 H 177/75 H 149/72 H O2 Saturation 80 L 98 93 If not protocol 10 3 : Oxygen Flow, liters/minute 03/15/23 03/15/23 12:30 14:33 Temperature Heart Rate 69 71 Respiratory 18 22 Rate Blood Pressure 167/75 H 138/88 H O2 Saturation 95 96 If not protocol 3 4 : Oxygen Flow, liters/minute Oxygen O2 Source Nasal cannula Oxygen Flow Rate 10 - EKG (time done) 1025 EKG releavant findings:: EKG personally interpreted by author of this note. Relevant findings are: - Labs Labs: Laboratory Tests 03/15/23 03/15/23 03/15/23 10:14 10:14 10:14 WBC 10.3 RBC 4.24 L Hgb 13.5 L Hct 42.6 MCV 100.5 H MCH 31.8 H MCHC 31.7 L RDW 13.6 Plt Count 187 MPV 9.4 Neut # (Auto) 6.2 Lymph # (Auto) 3.1 Ralls # (Auto) 0.8 Eos # (Auto) 0.1 Baso # (Auto) 0.1 Absolute Nucleated RBC 0.00 Nucleated RBC % 0.0 Sodium 141 Potassium 3.9 Chloride 101 Carbon Dioxide 34 H Anion Gap 6.0 BUN 19 Creatinine 0.8 Estimated GFR (MDRD) 93 Glucose 100 Calcium 9.1 Total Bilirubin 0.6 AST 24 ALT 34 Alkaline Phosphatase 75 B-Natriuretic Peptide 247 H Total Protein 6.4 Albumin 4.2 Globulin 2.2 Albumin/Globulin Ratio 1.9 Lipase 32 Nasal Adenovirus (PCR) Nasal B. parapertussis DNA (PCR) Nasal Coronavir 229E PCR Nasal Coronavir HKU1 PCR Nasal Coronavir NL63 PCR Nasal Coronavir OC43 PCR Nasal Enterovir/Rhinovir PCR Nasal Influenza B PCR Nasal Influenza A PCR Nasal Parainfluen 1 PCR Nasal Parainfluen 2 PCR Nasal Parainfluen 3 PCR Nasal Parainfluen 4 PCR Nasal RSV (PCR) Nasal B.pertussis DNA PCR Nasal C.pneumoniae (PCR) Eric Human Metapneumo PCR Nasal M.pneumoniae (PCR) Nasal SARS-CoV-2 (PCR) 03/15/23 10:14 WBC RBC Hgb Hct MCV MCH MCHC RDW Plt Count MPV Neut # (Auto) Lymph # (Auto) Ralls # (Auto) Eos # (Auto) Baso # (Auto) Absolute Nucleated RBC Nucleated RBC % Sodium Potassium Chloride Carbon Dioxide Anion Gap BUN Creatinine Estimated GFR (MDRD) Glucose Calcium Total Bilirubin AST ALT Alkaline Phosphatase B-Natriuretic Peptide Total Protein Albumin Globulin Albumin/Globulin Ratio Lipase Nasal Adenovirus (PCR) NOT DETECTED Nasal B. parapertussis DNA (PCR) NOT DETECTED Nasal Coronavir 229E PCR NOT DETECTED Nasal Coronavir HKU1 PCR NOT DETECTED Nasal Coronavir NL63 PCR NOT DETECTED Nasal Coronavir OC43 PCR NOT DETECTED Nasal Enterovir/Rhinovir PCR NOT DETECTED Nasal Influenza B PCR NOT DETECTED Nasal Influenza A PCR NOT DETECTED Nasal Parainfluen 1 PCR NOT DETECTED Nasal Parainfluen 2 PCR NOT DETECTED Nasal Parainfluen 3 PCR NOT DETECTED Nasal Parainfluen 4 PCR NOT DETECTED Nasal RSV (PCR) NOT DETECTED Nasal B.pertussis DNA PCR NOT DETECTED Nasal C.pneumoniae (PCR) NOT DETECTED Eric Human Metapneumo PCR NOT DETECTED Nasal M.pneumoniae (PCR) NOT DETECTED Nasal SARS-CoV-2 (PCR) NOT DETECTED PD Medical Decision Making - ED course Complexity details: reviewed results, re-evaluated patient, d/w patient, d/w family ED course: Patient is a 77-year-old male presenting for evaluation of increased shortness of breath over the past 1 month along with lower extremity swelling showing up over the past 10 days. He is normally on oxygen but was noted to be hypoxic in triage on his usual oxygen and required increased oxygen requirements. On exam he has peripheral edema and crackles. EKG is reviewed without signs of acute ischemia. CBC, chemistries BNP and chest x-ray were obtained and reviewed. No findings of pneumonia. He also does not have symptoms of chest pain to suggest ACS. He did receive a dose of IV Lasix with good diuresis but remained quite tachypneic and labored with his breathing with minimal exertion from the bedside commode back to his bed. As he is needing increased oxygen I will admit the patient for further management. 1444 - D/W Dr. Mayfield who Will admit the patient for further management. Departure - Departure Disposition: [facility] DC/Xfer Clinical Impression: Peripheral edema, Congestive heart failure, Acute respiratory failure with hypoxia Condition: Fair Discharge Date/Time: 03/15/23 16:48
[2023-03-15] MEDS ORDERED: ONDANSETRON 4 MG/2 ML VIAL IVP PRN (14:51)
[2023-03-15] MEDS ORDERED: SODIUM CHLORIDE FLUSH 0.9% 10 ML SYRINGE IVP PRN (14:51)
[2023-03-15] MEDS ORDERED: ACETAMINOPHEN 325 MG TABLET PO PRN (14:51)
[2023-03-15] MEDS ORDERED: ONDANSETRON ODT 4 MG TABLET TL PRN (14:51)
[2023-03-15] MEDS ORDERED: oxyCODONE 5 MG TABLET PO PRN (14:51)
[2023-03-15] MEDS ORDERED: FUROSEMIDE 20 MG/2 ML VIAL IVP STA (14:54)
--- NOTE | 2023-03-15 15:27 | HISTORY & PHYSICAL EXAMINATION ---
Chief Complaint - Chief Complaint Chief Complaint: shortness of breath and swollen legs History of Present Illness - Admitted From Admitted From:: Emergency Room - History Obtained From Records Reviewed: Clinic notes History obtained from: Patient Exam Limitations: No limitations - History of Present Illness HPI Comment/Other: Mr. Lowery is a 77 year old male with CHF, HTN, DM, HLD, COPD, and BPH who presented to the ER with increasing shortness of breath and bilateral lower extremity edema. Patient has been on 2L home oxygen for the past year and notes his SOB has become progressively worse over the past few months. He has dyspnea with exertion and reports his O2 sats drop to 50% after any light activity, even with his supplemental oxygen. His bilateral lower extremity edema began about a week ago and was not precipitated by anything. Denies any changes in lifestyle, medications, diet, or activity. Patient is a chronic smoker at half a pack per day for the past 45 years. Labs drawn in the ER showed WBC: 103, BNP 247, RBC 4.24, HgB 13.5. XR of the chest showed an enlarged heart with mild diffuse reticulonodular pulmonary opacities. Mild edema vs atypical pneumonia. He was given 20 mg of Lasix to Currently, patient feels fine. He denies any dizziness, headaches, vision changes, or chest pain. Denies any changes in bowel movements, nausea, or vomiting. History - Past Medical History Cardiovascular: reports: Congestive heart failure, Hypertension, High cholesterol, [place] Respiratory: reports: COPD, Emphysema, Shortness of breath Neuro: reports: None Endocrine/Autoimmune: reports: Type 2 diabetes GI: reports: None : reports: Benign prostate hypertrophy HEENT: reports: None Psych: reports: None, Depression Musculoskeletal: reports: Osteoarthritis Derm: reports: None MRSA Hx?: No - Past Surgical History General: reports: Colonoscopy HEENT: reports: Tonsil/Adenoidectomy - Family & Social History Family History: Mother: Cancer (breast cancer), Father: (at age 64 from [place]), Sister: Alive and Well Living arrangement: At home Living Situation: With spouse/s.o. - Substance History Use: Uses substance without health or social issues: Tobacco Abuse: Recurrent use of substance despite neg consequences: NONE Tobacco Details: Cigarettes - POLST POLST Status: Full Code Meds/Allgy - Home Medications Home Medications: Ambulatory Orders Medication Instructions Recorded Confirmed Aspirin 1 tab ORAL DAILY 11/28/16 03/15/23 Atorvastatin Calcium [Lipitor] 0.5 tab ORAL DAILY 11/28/16 03/15/23 Niacin [Niaspan] 1 tab ORAL DAILY 11/28/16 03/15/23 Saw Ovid 1 tab ORAL DAILY 11/28/16 03/15/23 lisinopriL [Lisinopril] 1 tab ORAL DAILY 11/28/16 03/15/23 metFORMIN [Glucophage] 1 tab ORAL BID 11/28/16 03/15/23 Finasteride [Proscar] 5 mg PO DAILY 03/15/23 03/15/23 dilTIAZem HCL [Diltiazem 24Hr ER] 120 mg PO DAILY 03/15/23 03/15/23 - Allergies Allergies/Adverse Reactions: Allergies Allergy/AdvReac Type Severity Reaction Status Date / Time No Known Drug Allergies Allergy Verified 03/15/23 09:48 Review of Systems - Constitutional Constitutional: denies: Fatigue, Fever, Chills, Malaise, Weakness, Poor appetite, Diaphoresis - Eyes Eyes: denies: Pain, Irritation, Field loss - Ears, Nose & Throat Ears, Nose & Throat: denies: Ear pain, Hearing loss, Hearing aids, Tinnitus, Vertigo, Nasal pain, Nasal discharge, Nosebleeds - Cardiovascular Cariovascular: reports: Edema (bilateral lower extremities), Exertional dyspnea, Decr. exercise tolerance. denies: Palpitations, Chest pain, Lightheadedness, Syncope - Respiratory Respiratory: reports: Cough, SOB with exertion - Gastrointestinal Gastrointestinal: denies: Abdominal pain, Abdominal distention, Constipation, Diarrhea, Change in bowel habits, Rectal bleeding, Black stools, Bloody stools, Nausea, Vomiting - Genitourinary Genitourinary: denies: Dysuria, Frequency, Urgency, Hematuria - Musculoskeletal Musculoskeletal: denies: Muscle pain, Back pain, Muscle aches, Stiffness - Integumentary Integumentary: denies: Rash, Pruritis, Lesions, Dryness - Neurological Neurological: denies: General weakness, Focal weakness, Headache, Numbness - Psychiatric Psychiatric: reports: Depression - Endocrine Endocrine: denies: Polyuria, Polydypsia, Polyphagia, Intolerance to cold - Hematologic/Lymphatic Hematologic/Lymphatic: reports: Bruising. denies: Anemia, Petechiae Prior Level of Functionality: No limitations Exam - Vital Signs Vital Signs: Vital Signs x48h Temp Pulse Resp BP Pulse Ox O2 Flow Rate 03/15/23 14:33 71 22 138/88 H 96 4 03/15/23 12:30 69 18 167/75 H 95 3 03/15/23 12:00 75 222 H 149/72 H 93 3 03/15/23 10:41 89 20 177/75 H 98 10 03/15/23 09:48 36.8 C 82 16 140/65 H 80 L - Physical Exam General Appearance: positive: No acute distress, Alert Eyes Bilateral: positive: Normal inspection, EOMI Neck: positive: No JVD, Trachea midline Respiratory: positive: Chest non-tender, Rales Cardiovascular: positive: Regular rate & rhythm, No murmur, No gallop Abdomen: positive: Non-tender, Nml bowel sounds, No distention Back: positive: Nml inspection Skin: positive: Warm, Dry, Other (bilateral hands are red in color) Extremities: positive: Full ROM, Pedal edema (bilateral lower extremity swelling, pitting edema 3+) Neurologic/Psychiatric: positive: Oriented x3 Sepsis Event Note (H) - Sepsis Criteria Sepsis Criteria: Recorded Respiratory Rate greater than 20 Conclusion/Plan - Problem List (1) Acute respiratory failure with hypoxia Conclusion/Plan: Patient is currently on 4L of supplemental oxygen via NC and satting around 92%. At baseline, he requires 2-3L of O2 at home. His hypoxia could be due to a combination of factors including COPD and CHF exacerbation. Patient also smokes half a pack of cigarettes a day. - Continue on oxygen supplementation to maintain saturation of 88-92% since patient has a history of COPD - Can use albuterol inhaler as needed for wheezing - Can use Perforomist and budesonide inhalers for COPD (2) COPD (chronic obstructive pulmonary disease) Conclusion/Plan: Patient has a longstanding history of COPD due to his 45 years of smoking half a pack of cigarettes a day. He continues to smoke daily and is aware of the health impacts. We will give him inhalers to help with his breathing. - Remain on supplemental oxygen to maintain oxygen saturation of 88%-92% - Can use perforomist and budesonide inhalers - albuterol inhaler as needed for wheezing (3) Acute exacerbation of CHF (congestive heart failure) Conclusion/Plan: Patient has complaints of increasing dyspnea, SOB, and bilateral lower extremity swelling. This is likely due to CHF exacerbation. Patient was given 20 mg IV lasix in the ER. We will give a second dose of Lasix, at 40 mg IV on the floor and monitor output. We expect his SOB, dyspnea, and edema to improve following urination. He will continue on supplemental oxygen in the meantime. - 40 mg IV lasix on the floor - Monitor output - Remain on supplemental oxygen (4) Edema Conclusion/Plan: Patient has bilateral pitting lower extremity edema at 3+. This is likely due to CHF exacerbation. He received one dose of 20 mg Lasix in the ER and will receive a second dose of Lasix on the floor. We will get an echo to re-evaluate his heart and monitor his output. - repeat dose of Lasix on the floor - Monitor output - Re-evaluate edema (5) Diabetes type 2, controlled Conclusion/Plan: Patient has Type II DM and is only on Metformin. He does not check his blood sugar at home. We will hold his metformin while he is admitted to prevent pot ential lactic acidosis. Instead, he will be started on sliding scale insulin. - check HgbA1C tomorrow - Hold metformin - BS checks before meal and use sliding scale (6) Hypertension Conclusion/Plan: Patient has a history of HTN with last BP 138/88. - Continue on home dose of Lisinopril and Diltiazem if needed (7) Smoking 1/2 pack a day or less Conclusion/Plan: Patient has smoked half a pack a day for the past 45 years. He is interested in stopping but does not believe he can. Discussed using a nicotine patch and patient is hesitant. He is aware he will not be able to smoke while admitted to the hospital. Discussed the importance of smoking cessation. - Consider nicotine patch - Smoking cessation counseling (8) Benign prostate hyperplasia Conclusion/Plan: Patient has a history of BPH. Currently, he does not have any urinary complaints. - start finasteride (9) Depression Conclusion/Plan: Patient reports feeling depressed regarding his health status. He was previously prescribed Prozac by his PCP but stopped after feeling suicidal. He currently does not take any medications for his depression. - Can discuss alternative anti-depressives - Lab Results Fish Bones: 03/15/23 10:14 03/15/23 10:14
[2023-03-15] MEDS ORDERED: ALBUTEROL NEB 2.5 MG/3 ML INH PRN (17:30)
[2023-03-15] MEDS: BUDESONIDE 0.5 MG/2 ML NEB INH SCH (17:55)
[2023-03-15] MEDS: FORMOTEROL FUMARATE NEB 20 MCG/2 ML INH SCH (17:55)
[2023-03-15] MEDS: SODIUM CHLORIDE FLUSH 0.9% 10 ML SYRINGE IVP SCH (18:12)
[2023-03-15] MEDS ORDERED: ZOLPIDEM 5 MG TABLET PO PRN ×2 (18:57→20:00)
[2023-03-15] MEDS: SODIUM CHLORIDE 0.65% NASAL SPRAY NAS PRN (20:56)
[2023-03-15] MEDS ORDERED: ATORVASTATIN 40 MG TABLET PO SCH (21:00)
[2023-03-15] MEDS: INSULIN LISPRO 300 UNIT/3 ML PEN SUBQ SCH (21:03)
--- NOTE | 2023-03-15 21:42 | Ultrasound Report ---
PROCEDURE: Duplex Ext Veins Bilateral INDICATIONS: Guilherme Arias MD TECHNIQUE: Real-time imaging, as well as color and pulse Doppler interrogation, were performed of the deep veins of both legs from the inguinal ligament to the popliteal fossa. Attempted visualization of the calf veins was performed. COMPARISON: None. FINDINGS: The deep veins are normally compressible, and free of intraluminal thrombus. Color and pu lse Doppler demonstrate normal phasic intravascular flow. There is normal augmentation response to d istal compression maneuver. Limited visualization of the calf veins. Subcutaneous edema. Right Pollack's cyst measuring 2.6 cm. IMPRESSION: Exam is technically difficult particularly at the calves. No lower extremity DVT in the visualized portions. Reviewed by: August Le MD on 03/15/2023 9:41 PM PST Approved by: August Le MD on 03/15/2023 9:41 PM PST Station ID: [id number]
[2023-03-16] MEDS: SODIUM CHLORIDE 0.65% NASAL SPRAY NAS PRN (01:03)
[2023-03-16] MEDS: SODIUM CHLORIDE FLUSH 0.9% 10 ML SYRINGE IVP SCH ×2 (01:04→08:18)
[2023-03-16 05:44] LABS: BASOPHILS # (AUTO) 0.1 10^3/uL (0.0-0.1); BASOPHILS % (AUTO) 0.6 %; EOSINOPHILS # (AUTO) 0.1 10^3/uL (0.0-0.7); EOSINOPHILS % (AUTO) 1.3 %; HCT - HEMATOCRIT 40.5 % (42.0-52.0); HGB - HEMOGLOBIN 13.1 g/dL (14.0-18.0); LYMPHOCYTES # (AUTO) 3.9 10^3/uL (1.5-3.5); LYMPHOCYTES % (AUTO) 35.7 %; MEAN CORPUSCULAR HEMOGLOBIN 32.6 pg (27.0-31.0); MEAN CORPUSCULAR HGB CONC 32.3 g/dL (32.0-36.0); MEAN CORPUSCULAR VOLUME 100.7 fL (80.0-94.0); MONOCYTES # (AUTO) 0.9 10^3/uL (0.0-1.0); NEUTROPHILS # (AUTO) 5.9 10^3/uL (1.5-6.6); NEUTROPHILS % (AUTO) 54.2 %; PLT - PLATELET COUNT 173 10^3/uL (130-450); RED BLOOD COUNT 4.02 10^6/uL (4.70-6.10); RED CELL DISTRIBUTION WIDTH 13.5 % (12.0-15.0)
[2023-03-16 06:03] LABS: CALCIUM 8.8 mg/dL (8.5-10.3); CREATININE 0.9 mg/dL (0.6-1.3); POTASSIUM 4.1 mmol/L (3.5-4.5)
[2023-03-16] MEDS: BUDESONIDE 0.5 MG/2 ML NEB INH SCH (07:14)
[2023-03-16] MEDS: FORMOTEROL FUMARATE NEB 20 MCG/2 ML INH SCH (07:15)
--- NOTE | 2023-03-16 07:50 | PROVIDER PROGRESS NOTE ---
Subjective - Prog Note Date Prog Note Date: 03/16/23 Prog Note Time: 07:50 - Subjective Pt reports feeling: Improved Subjective: Mr. Lowery is a 77 year old male with CHF, HTN, DM, HLD, COPD, and BPH who presented to the ER with increasing shortness of breath and bilateral lower extremity edema. Patient has been on 2L home oxygen for the past year and notes his SOB has become progressively worse over the past few months. He has dyspnea with exertion and reports his O2 sats drop to 50% after any light activity, even with his supplemental oxygen. His bilateral lower extremity edema began about a week ago and was not precipitated by anything. Denies any changes in lifestyle, medications, diet, or activity. Patient is a chronic smoker at half a pack per day for the past 45 years. Labs drawn in the ER showed WBC: 103, BNP 247, RBC 4.24, HgB 13.5. XR of the chest showed an enlarged heart with mild diffuse reticulonodular pulmonary opacities. Mild edema vs atypical pneumonia. He was given 20 mg of Lasix in the ER and 40 mg Lasix while admitted. Venous duplex was done that showed no evidence of DVT. There was subcutaneous edema with right Pollack's cyst, 2.6 cm. Currently, patient feels fine. Bilateral lower extremities are still swollen with 3+ pitting edema. His O2 was lowered to 2L NC, which is what he uses at home. He denies any dizziness, headaches, vision changes, or chest pain. Denies any changes in bowel movements, nausea, or vomiting. He had an echocardiogram today to reassess his left ventricle. Objective - Vital Signs/Intake & Output Vital Signs: Vital Signs x48h Temp Pulse Pulse Resp BP BP Pulse Ox 03/16/23 07:15 79 18 03/16/23 05:50 36.9 C 68 19 141/69 H 93 03/16/23 00:56 37.1 C 67 18 117/54 L 95 O2 Flow Rate 03/16/23 07:15 4 03/16/23 05:50 4 03/16/23 00:56 4 Intake & Output: Intake & Output 03/13/23 03/14/23 03/15/23 03/16/23 23:59 23:59 23:59 23:59 Intake Total 740 500 Output Total 2550 250 Balance -1810 250 - Objective General Appearance: positive: No acute distress, Alert Eyes Bilateral: positive: Normal inspection, PERRL, EOMI ENT: positive: No signs of dehydration Neck: positive: No JVD, Trachea midline Respiratory: positive: Chest non-tender, Rales Cardiovascular: positive: Regular rate & rhythm, No murmur, No gallop Abdomen: positive: Non-tender, Nml bowel sounds, No distention Back: positive: Nml inspection Skin: positive: Color nml, No rash, Warm Extremities: positive: Non-tender, Full ROM, Pedal edema, Other (bilateral lower extremity pitting edema 3+) Neurologic/Psychiatric: positive: Oriented x3 - Lab Results Fish Bones: 03/16/23 05:11 03/16/23 05:11 Other Labs: Lab Results x24hrs 03/16/23 03/16/23 03/16/23 Range/Units 07:39 05:11 05:11 WBC (4.8-10.8) x10^3/uL RBC (4.70-6.10) 10^6/uL Hgb (14.0-18.0) g/dL Hct (42.0-52.0) % MCV (80.0-94.0) fL MCH (27.0-31.0) pg MCHC (32.0-36.0) g/dL RDW (12.0-15.0) % Plt Count (130-450) 10^3/uL MPV (7.4-11.4) fL Neut # (Auto) (1.5-6.6) 10^3/uL Lymph # (Auto) (1.5-3.5) 10^3/uL [place] # (Auto) (0.0-1.0) 10^3/uL Eos # (Auto) (0.0-0.7) 10^3/uL Baso # (Auto) (0.0-0.1) 10^3/uL Absolute Nucleated RBC x10^3/uL Nucleated RBC % /100WBC Sodium 140 (135-145) mmol/L Potassium 4.1 (3.5-4.5) mmol/L Chloride 103 (101-111) mmol/L Carbon Dioxide 36 H (21-32) mmol/L Anion Gap 1.0 L (6-13) BUN 22 H (6-20) mg/dL Creatinine 0.9 (0.6-1.3) mg/dL Estimated GFR (MDRD) 82 L (>89) Glucose 84 (74-104) mg/dL POC Whole Bld Glucose 85 (70 - 100) mg/dL Calcium 8.8 (8.5-10.3) mg/dL Total Bilirubin (0.2-1.0) mg/dL AST (10-42) IU/L ALT (10-60) IU/L Alkaline Phosphatase (42-121) IU/L B-Natriuretic Peptide 180 H (5-100) pg/mL Total Protein (6.4-8.9) g/dL Albumin (3.2-5.5) g/dL Globulin (2.1-4.2) g/dL Albumin/Globulin Ratio (1.0-2.2) Lipase (11-82) U/L Nasal Adenovirus (PCR) Nasal B. parapertussis DNA (PCR) Nasal Coronavir 229E PCR Nasal Coronavir HKU1 PCR Nasal Coronavir NL63 PCR Nasal Coronavir OC43 PCR Nasal Enterovir/Rhinovir PCR Nasal Influenza B PCR Nasal Influenza A PCR Nasal Parainfluen 1 PCR Nasal Parainfluen 2 PCR Nasal Parainfluen 3 PCR Nasal Parainfluen 4 PCR Nasal RSV (PCR) Nasal B.pertussis DNA PCR Nasal C.pneumoniae (PCR) Eric Human Metapneumo PCR Nasal M.pneumoniae (PCR) Nasal SARS-CoV-2 (PCR) 03/16/23 03/15/23 03/15/23 Range/Units 05:11 20:52 10:14 WBC 11.0 H (4.8-10.8) x10^3/uL RBC 4.02 L (4.70-6.10) 10^6/uL Hgb 13.1 L (14.0-18.0) g/dL Hct 40.5 L (42.0-52.0) % MCV 100.7 H (80.0-94.0) fL MCH 32.6 H (27.0-31.0) pg MCHC 32.3 (32.0-36.0) g/dL RDW 13.5 (12.0-15.0) % Plt Count 173 (130-450) 10^3/uL MPV 10.0 (7.4-11.4) fL Neut # (Auto) 5.9 (1.5-6.6) 10^3/uL Lymph # (Auto) 3.9 H (1.5-3.5) 10^3/uL Rutherford # (Auto) 0.9 (0.0-1.0) 10^3/uL Eos # (Auto) 0.1 (0.0-0.7) 10^3/uL Baso # (Auto) 0.1 (0.0-0.1) 10^3/uL Absolute Nucleated RBC 0.00 x10^3/uL Nucleated RBC % 0.0 /100WBC Sodium (135-145) mmol/L Potassium (3.5-4.5) mmol/L Chloride (101-111) mmol/L Carbon Dioxide (21-32) mmol/L Anion Gap (6-13) BUN (6-20) mg/dL Creatinine (0.6-1.3) mg/dL Estimated GFR (MDRD) (>89) Glucose (74-104) mg/dL POC Whole Bld Glucose 149 H (70 - 100) mg/dL Calcium (8.5-10.3) mg/dL Total Bilirubin (0.2-1.0) mg/dL AST (10-42) IU/L ALT (10-60) IU/L Alkaline Phosphatase (42-121) IU/L B-Natriuretic Peptide (5-100) pg/mL Total Protein (6.4-8.9) g/dL Albumin (3.2-5.5) g/dL Globulin (2.1-4.2) g/dL Albumin/Globulin Ratio (1.0-2.2) Lipase (11-82) U/L Nasal Adenovirus (PCR) NOT DETECTED Nasal B. parapertussis DNA (PCR) NOT DETECTED Nasal Coronavir 229E PCR NOT DETECTED Nasal Coronavir HKU1 PCR NOT DETECTED Nasal Coronavir NL63 PCR NOT DETECTED Nasal Coronavir OC43 PCR NOT DETECTED Nasal Enterovir/Rhinovir PCR NOT DETECTED Nasal Influenza B PCR NOT DETECTED Nasal Influenza A PCR NOT DETECTED Nasal Parainfluen 1 PCR NOT DETECTED Nasal Parainfluen 2 PCR NOT DETECTED Nasal Parainfluen 3 PCR NOT DETECTED Nasal Parainfluen 4 PCR NOT DETECTED Nasal RSV (PCR) NOT DETECTED Nasal B.pertussis DNA PCR NOT DETECTED Nasal C.pneumoniae (PCR) NOT DETECTED Eric Human Metapneumo PCR NOT DETECTED Nasal M.pneumoniae (PCR) NOT DETECTED Nasal SARS-CoV-2 (PCR) NOT DETECTED 03/15/23 03/15/23 03/15/23 Range/Units 10:14 10:14 10:14 WBC 10.3 (4.8-10.8) x10^3/uL RBC 4.24 L (4.70-6.10) 10^6/uL Hgb 13.5 L (14.0-18.0) g/dL Hct 42.6 (42.0-52.0) % MCV 100.5 H (80.0-94.0) fL MCH 31.8 H (27.0-31.0) pg MCHC 31.7 L (32.0-36.0) g/dL RDW 13.6 (12.0-15.0) % Plt Count 187 (130-450) 10^3/uL MPV 9.4 (7.4-11.4) fL Neut # (Auto) 6.2 (1.5-6.6) 10^3/uL Lymph # (Auto) 3.1 (1.5-3.5) 10^3/uL R[place]ford # (Auto) 0.8 (0.0-1.0) 10^3/uL Eos # (Auto) 0.1 (0.0-0.7) 10^3/uL Baso # (Auto) 0.1 (0.0-0.1) 10^3/uL Absolute Nucleated RBC 0.00 x10^3/uL Nucleated RBC % 0.0 /100WBC Sodium 141 (135-145) mmol/L Potassium 3.9 (3.5-4.5) mmol/L Chloride 101 (101-111) mmol/L Carbon Dioxide 34 H (21-32) mmol/L Anion Gap 6.0 (6-13) BUN 19 (6-20) mg/dL Creatinine 0.8 (0.6-1.3) mg/dL Estimated GFR (MDRD) 93 (>89) Glucose 100 (74-104) mg/dL POC Whole Bld Glucose (70 - 100) mg/dL Calcium 9.1 (8.5-10.3) mg/dL Total Bilirubin 0.6 (0.2-1.0) mg/dL AST 24 (10-42) IU/L ALT 34 (10-60) IU/L Alkaline Phosphatase 75 (42-121) IU/L B-Natriuretic Peptide 247 H (5-100) pg/mL Total Protein 6.4 (6.4-8.9) g/dL Albumin 4.2 (3.2-5.5) g/dL Globulin 2.2 (2.1-4.2) g/dL Albumin/Globulin Ratio 1.9 (1.0-2.2) Lipase 32 (11-82) U/L Nasal Adenovirus (PCR) Nasal B. parapertussis DNA (PCR) Nasal Coronavir 229E PCR Nasal Coronavir HKU1 PCR Nasal Coronavir NL63 PCR Nasal Coronavir OC43 PCR Nasal Enterovir/Rhinovir PCR Nasal Influenza B PCR Nasal Influenza A PCR Nasal Parainfluen 1 PCR Nasal Parainfluen 2 PCR Nasal Parainfluen 3 PCR Nasal Parainfluen 4 PCR Nasal RSV (PCR) Nasal B.pertussis DNA PCR Nasal C.pneumoniae (PCR) Eric Human Metapneumo PCR Nasal M.pneumoniae (PCR) Nasal SARS-CoV-2 (PCR) Sepsis Event Note (H) - Sepsis Criteria Sepsis Criteria: Recorded Respiratory Rate greater than 20 Assessment/Plan - Problem List (1) Acute respiratory failure with hypoxia Impression: RESOLVED. Patient was admitted on 4L of supplemental oxygen via NC and we were able to lower it to his home level of 2L with sats around 92%. He is currently back at baseline. It is likely that his hypoxia was due to a combination of factors including COPD and CHF exacerbation. Patient also smokes half a pack of cigarettes a day. - Continue on oxygen supplementation to maintain saturation of 88-92% since patient has a history of COPD - Can use albuterol inhaler as needed for wheezing - Can use Perforomist and budesonide inhalers for COPD (2) COPD (chronic obstructive pulmonary disease) Impression: Patient has a longstanding history of COPD due to his 45 years of smoking half a pack of cigarettes a day. He continues to smoke daily and is aware of the health impacts. We will give him inhalers to help with his breathing. - Remain on supplemental oxygen to maintain oxygen saturation of 88%-92% - Can use perforomist and budesonide inhalers - albuterol inhaler as needed for wheezing (3) Acute exacerbation of CHF (congestive heart failure) Impression: Patient has complaints of increasing dyspnea, SOB, and bilateral lower extremity swelling. This is likely due to CHF exacerbation. Patient was given 20 mg IV lasix in the ER and 40 mg om the floor. He had 1810 mL of net output. He will start on low dose daily Lasix and potassium. He will follow up with his PCP and carbide powder processor. An echo was done today, results are pending at this time. - 20 mg Lasix daily - Monitor output - Remain on supplemental oxygen (4) Edema Impression: Patient has bilateral pitting lower extremity edema at 3+. This is likely due to CHF exacerbation. BNP dropped from 247 to 180. He will need a repeat BNP in about a week with his carbide powder processor. He did have an echo this morning and results are pending. - continue on 20 mg daily Lasix - Monitor output - Follow up with PCP and carbide powder processor (5) Diabetes type 2, controlled Impression: Patient has Type II DM and is only on Metformin. He does not check his blood sugar at home. We will hold his metformin while he is admitted to prevent potential lactic acidosis. Instead, he will be started on sliding scale insulin. - check HgbA1C tomorrow - Hold metformin - BS checks before meal and use sliding scale (6) Hypertension Impression: Patient has a history of HTN - Continue on home dose of Lisinopril and Diltiazem (7) Smoking 1/2 pack a day or less Impression: Patient has smoked half a pack a day for the past 45 years. He is interested in stopping but does not believe he can. Discussed using a nicotine patch and patient is hesitant. He is aware he will not be able to smoke while admitted to the hospital. Discussed the importance of smoking cessation. - Consider nicotine patch - Smoking cessation counseling (8) Benign prostate hyperplasia Impression: Patient has a history of BPH. Currently, he does not have any urinary complaints. - Continue finasteride (9) Depression Impression: Patient reports feeling depressed regarding his health status. He was previously prescribed Prozac by his PCP but stopped after feeling suicidal. He currently does not take any medications for his depression. - Can discuss alternative anti-depressives
[2023-03-16] MEDS: INSULIN LISPRO 300 UNIT/3 ML PEN SUBQ SCH ×2 (08:11→12:14)
[2023-03-16] MEDS ORDERED: diltiaZEM CD 120 MG CAPSULE PO SCH ×2 (09:00)
[2023-03-16] MEDS ORDERED: FINASTERIDE 5 MG TABLET PO SCH (09:00)
[2023-03-16] MEDS ORDERED: lisinopriL 20 MG TABLET PO SCH ×2 (09:00)
[2023-03-16] MEDS ORDERED: ENOXAPARIN 40 MG/0.4 ML SYRINGE SUBQ SCH (09:00)
--- NOTE | 2023-03-16 10:31 | PHARMACY PROGRESS NOTE ---
- Best Possible Medication History Admit Date and Time: 03/15/23 1452 Processed by: Nursing As the person ultimately responsible for medication therapy, providers are able to order a medication from an existing home medication list in [facility] via the "Reconcile Routine" prior to Confirmation of that medication by support manager. Such practice is discouraged except when the physician, in their clinical judgment, deems that a medical need exists for a medication without regard to previous use.
--- NOTE | 2023-03-16 11:59 | Discharge Plan ---
Discharge Plan Problem Reviewed?: Yes Disposition: Home, Self Care Condition: Fair Prescriptions: Furosemide [Lasix] 20 mg PO DAILY #30 tablet Potassium Chloride 20 meq PO DAILY #30 tab Diet: Low Sodium Activity Restrictions: Activity as Tolerated Shower Restrictions: No Driving Restrictions: No Health Concerns: Unfortunately you are a gentleman who has severe emphysema and already are on 2 to 3 L of oxygen at home for the last year. Your shortness of breath has been getting worse over the last few months. This is a worsening of already baseline shortness of breath that has really limited your life. But in the last week you have been developing more and more leg edema. You do not have any history of congestive heart failure. You do see a donations attendant with [facility], Dr. Meeks. You came to the emergency room with shortness of breath. Oxygen levels were very low and you were requiring 4 to 5 L of oxygen. We have given you Lasix which is a medicine that makes you urinate. That has had a good result. Your oxygen level is now back to what you usually are. We are wondering if you have A new diagnosis of congestive heart failure and we did an echocardiogram, which is an ultrasound of your heart before you left. Plan of Treatment: I am starting you on a new water pill. You will be taking Lasix 20 mg a day. 1 tablet in the morning. You will also be taking potassium 1 tablet in the morning. Weigh yourself daily. If you do not gradually start losing weight with this, yo u may need to take 1 Lasix tablet in the morning, and 1 Lasix tablet at 2 in the afternoon. Please see your primary care provider in follow-up because I need them to check your potassium level in the next 1 to [address] Meeks in follow-up as well. Care Goals: Right now you are going to work on trying to get your ankle to skinny as they were before. And stabilize your deteriorating lung disease by stopping smoking Assessment: Patient is alert, oriented to person, place, time, situation. No Smoking: If you smoke, Please STOP! Call for help. Follow-up with: Dano Bhatti MD [Primary Care Provider] -
[2023-03-16 12:23] LABS: ESTIMATED AVERAGE GLUCOSE 137 mg/dL (70-100); HEMOGLOBIN A1c% 6.4 % (4.27-6.07)
--- NOTE | 2023-03-16 12:42 | DISCHARGE SUMMARY ---
"Discharge Summary Admit Date: 03/15/23 Discharge Date: 03/16/23 Discharging Provider: Dr. Keyanna Mayfield Code Status: Attempt Resuscitation Condition at Discharge: Fair Discharge Disposition: 01 Home, Self Care - DIAGNOSES Discharge Diagnoses with Status of Each Condition: 1. Acute respiratory failure with hypoxia: Discharge on 2L O2 via NC. Continue checking O2 sats if symptomatic at home 2. CHF exacerbation: Advised to follow up with PCP and hearing care practitioner. Start on 20 mg lasix and potassium daily 3. COPD: Continue on home oxygen and inhalers as needed 4. Bilateral lower extremity edema: Monitor any changes with daily Lasix. Follow up with PCP and hearing care practitioner regarding CHF status. Repeat BNP with hearing care practitioner within a week. 5. Diabetes Type 2: Follow up with PCP regarding HgbA1C and daily metformin 6. HTN: Restart home dose of antihypertensives 7. Smoking 1/2 pack per day: Discussed the importance of smoking cessation. Patient is open to quitting. 8. BPH: Continue on daily Finasteride for urinary retention 9. Depression: Follow up with PCP regarding starting a different antidepressant - HPI History of Present Illness: Mr. Lowery is a 77 year old male with CHF, HTN, DM, HLD, COPD, and BPH who presented to the ER with increasing shortness of breath and bilateral lower extremity edema. Patient has been on 2L home oxygen for the past year and notes his SOB has become progressively worse over the past few months. He has dyspnea with exertion and reports his O2 sats drop to 50% after any light activity, even with his supplemental oxygen. His bilateral lower extremity edema began about a week ago and was not precipitated by anything. Denies any changes in lifestyle, medications, diet, or activity. Patient is a chronic smoker at half a pack per day for the past 45 years. - CONSULTS | PROCEDURES Procedures: - Chest XR: Enlarged heart with mild diffuse reticulonodular pulmonary opacities. Mild edema vs atypical pneumonia. - Venous duplex: No DVT noted/ subcutaneous edema/ Right Pollack's cyst at 2.6 cm. limited visualization of calf veins - Echocardiogram: Results pending - HOSPITAL COURSE Hospital Course: Labs drawn in the ER showed WBC: 103, BNP 247, RBC 4.24, HgB 13.5. Patient was started om 4 L of O2 via NC. XR of the chest showed an enlarged heart with mild diffuse reticulonodular pulmonary opacities. Mild edema vs atypical pneumonia. He was given 20 mg of Lasix in the ER and another 40 mg while admitted to the floor. A net loss of 1810 mL was reported. Venous duplex that showed no sign of DVT, just subcutaneous edema. Patient had an echo on 03/16 and results are pending at the time of this dictation. His O2 was titrated down from 4L to his baseline 2L NC and patient feels fine, with O2 sats in the low 90's. He still has bilateral lower extremity edema. Patient is back to his baseline. He will need a repeat BNP with his hearing care practitioner in the next week. - ALLERGIES Allergies/Adverse Reactions: Allergies Allergy/AdvReac Type Severity Reaction Status Date / Time No Known Drug Allergies Allergy Verified 03/15/23 09:48 - MEDICATIONS Home Medications: Ambulatory Orders Medication Instructions Recorded Confirmed Aspirin 1 tab ORAL DAILY 11/28/16 03/15/23 Atorvastatin Calcium [Lipitor] 0.5 tab ORAL DAILY 11/28/16 03/15/23 Niacin [Niaspan] 1 tab ORAL DAILY 11/28/16 03/15/23 [place] 1 tab ORAL DAILY 11/28/16 03/15/23 lisinopriL [Lisinopril] 1 tab ORAL DAILY 11/28/16 03/15/23 metFORMIN [Glucophage] 1 tab ORAL BID 11/28/16 03/15/23 Finasteride [Proscar] 5 mg PO DAILY 03/15/23 03/15/23 dilTIAZem HCL [Diltiazem 24Hr ER] 120 mg PO DAILY 03/15/23 03/15/23 Furosemide [Lasix] 20 mg PO DAILY #30 tablet 03/16/23 Potassium Chloride 20 meq PO DAILY #30 tab 03/16/23 - PHYSICAL EXAM AT DISCHARGE General Appearance: positive: No acute distress, Alert Eyes Bilateral: positive: Normal inspection ENT: positive: ENT inspection nml Neck: positive: Nml inspection, No JVD Respiratory: positive: Rales, Other (SOB with exertion (baseline per patient)) Cardiovascular: positive: Regular rate & rhythm Peripheral Pulses: positive: 2+ Abdomen: positive: Non-tender, Nml bowel sounds, No distention Skin: positive: Color nml, No rash, Warm, Dry Extremities: positive: Pedal edema, Other (bilateral lower extremity pitting edema 3+) Neurologic/Psychiatric: positive: Oriented x3 - LABS Result Diagrams: 03/16/23 05:11 03/16/23 05:11 - SEPSIS Sepsis Criteria: Recorded Respiratory Rate greater than 20 - QUALITY (Female Hip Fx Only) Was patient sent home on osteoporosis medication?: No"
[2023-03-16] MEDS ORDERED: FUROSEMIDE 20 MG TABLET PO SCH (13:41)
[2023-03-16 13:43] VITALS: BP 135/59; O2SAT 90
== END 2023-03-16 13:48 | disposition home or self-care (01) ==
LOC: ED 09:44 → MS2 14:52
PROVIDERS: ADMIT Specialist; ATTEND Specialist
DX: J96.01 Acute respiratory failure with hypoxia (principal); I11.0 Hypertensive heart disease with heart failure; I50.31 Acute diastolic (congestive) heart failure; I27.81 Cor pulmonale (chronic); Z99.81 Dependence on supplemental oxygen; F17.210 Nicotine dependence, cigarettes, uncomplicated; E11.9 Type 2 diabetes mellitus without complications; Z79.84 Long term (current) use of oral hypoglycemic drugs; N40.0 Benign prostatic hyperplasia without lower urinary tract symptoms; F32.A Depression, unspecified; I25.2 Old myocardial infarction; E78.5 Hyperlipidemia, unspecified; J43.9 Emphysema, unspecified
CPT/HCPCS: 36415; 71045; 80048; 80053; 83036; 83690; 83880; 85025; 87633; 93005; 93306; 93970; 94640; 96372; 96374; 96376; 99285; A9270; G0378; J1650; J7626; 93307

== ENCOUNTER 2023-05-01 07:05 | Outpatient (CLI) | payer MEDICARE, OTHER ==
[2023-05-01 07:41] LABS: CALCIUM 9.4 mg/dL (8.5-10.3); POTASSIUM 4.5 mmol/L (3.5-4.5)
[2023-05-01 07:59] LABS: BASOPHILS # (AUTO) 0.1 10^3/uL (0.0-0.1); BASOPHILS % (AUTO) 0.4 %; EOSINOPHILS # (AUTO) 0.2 10^3/uL (0.0-0.7); EOSINOPHILS % (AUTO) 1.6 %; HCT - HEMATOCRIT 42.5 % (42.0-52.0); HGB - HEMOGLOBIN 13.9 g/dL (14.0-18.0); LYMPHOCYTES # (AUTO) 5.5 10^3/uL (1.5-3.5); LYMPHOCYTES % (AUTO) 45.4 %; MEAN CORPUSCULAR HEMOGLOBIN 32.6 pg (27.0-31.0); MEAN CORPUSCULAR HGB CONC 32.7 g/dL (32.0-36.0); MEAN CORPUSCULAR VOLUME 99.5 fL (80.0-94.0); MEAN PLATELET VOLUME 10.5 fL (7.4-11.4); MONOCYTES # (AUTO) 1.1 10^3/uL (0.0-1.0); MONOCYTES % (AUTO) 9.3 %; NEUTROPHILS # (AUTO) 5.2 10^3/uL (1.5-6.6); PLT - PLATELET COUNT 195 10^3/uL (130-450); RED BLOOD COUNT 4.27 10^6/uL (4.70-6.10); RED CELL DISTRIBUTION WIDTH 14.6 % (12.0-15.0)
[2023-05-01 08:01] LABS: RBC MORPHOLOGY (MULTIPLE) 2+ ANISOCYTOSIS (NORMAL)
[2023-05-01 08:03] LABS: SLIDE REVIEW? Indicated; WBC MORPHOLOGY (MULTIPLE) 2+ REACTIVE LYMPHS (NORMAL)
== END 2023-05-01 07:06 | disposition home or self-care (01) ==
LOC: LAB 07:05
PROVIDERS: ATTEND Internal Medicine
DX: I10 Essential (primary) hypertension (principal); I27.81 Cor pulmonale (chronic)
CPT/HCPCS: 36415; 80048; 83880; 85025

== ENCOUNTER 2023-09-13 07:36 | Outpatient (CLI) | payer MEDICARE, OTHER ==
[2023-09-13 07:47] LABS: BASOPHILS % (AUTO) 0.7 %; EOSINOPHILS % (AUTO) 3.4 %; HGB - HEMOGLOBIN 13.7 g/dL (14.0-18.0); LYMPHOCYTES % (AUTO) 48.3 %; MEAN CORPUSCULAR HGB CONC 32.6 g/dL (32.0-36.0); MEAN CORPUSCULAR VOLUME 101.2 fL (80.0-94.0); MEAN PLATELET VOLUME 9.9 fL (7.4-11.4); NEUTROPHILS % (AUTO) 39.3 %; PLT - PLATELET COUNT 169 10^3/uL (130-450); RED BLOOD COUNT 4.15 10^6/uL (4.70-6.10); RED CELL DISTRIBUTION WIDTH 14.1 % (12.0-15.0); WHITE BLOOD COUNT 11.4 x10^3/uL (4.8-10.8)
[2023-09-13 07:55] LABS: ABNORMAL LYMPHS % (MANUAL) 0 %; BAND NEUTROPHILS % (MANUAL) 0 %
[2023-09-13 08:05] LABS: ALBUMIN 4.4 g/dL (3.2-5.5); ALBUMIN/GLOBULIN RATIO 1.8 (1.0-2.2); ALKALINE PHOSPHATASE 71 IU/L (42-121); ALT ALANINE AMINOTRANSFERASE 15 IU/L (10-60); AST ASPARTATE AMINOTRANSFERASE 16 IU/L (10-42); BILIRUBIN,TOTAL 0.6 mg/dL (0.2-1.0); BUN - BLOOD UREA NITROGEN 23 mg/dL (6-20); CALCIUM 9.6 mg/dL (8.5-10.3); CARBON DIOXIDE - CO2 33 mmol/L (21-32); CHLORIDE 102 mmol/L (101-111); CHOL/HDL RATIO 2.4 (<5.0); CHOLESTEROL 141 mg/dL; GFR - MDRD 72 (>89); GLUCOSE 109 mg/dL (74-104); HDL CHOLESTEROL 60 mg/dL; LDL CHOLESTEROL,CALCULATED 65 mg/dL; LDL/HDL RATIO 1.1 (<3.6); POTASSIUM 4.3 mmol/L (3.5-4.5); SODIUM 140 mmol/L (135-145); TOTAL PROTEIN 6.8 g/dL (6.4-8.9); TRIGLYCERIDES 78 mg/dL; VLDL CHOLESTEROL 16 mg/dL
[2023-09-13 08:08] LABS: DIFFERENTIAL COMMENT MANUAL DIFFERENTIAL; EOSINOPHILS # (MANUAL) 0.8 10^3/uL (0-0.7); LYMPHOCYTES # (MANUAL) 5.5 10^3/uL (1.5-3.5); LYMPHOCYTES % (MANUAL) 44 %; MONOCYTES # (MANUAL) 0.9 10^3/uL (0.0-1.0); NEUTROPHILS # (MANUAL) 4.2 10^3/uL (1.5-6.6); PLATELET ESTIMATE, MANUAL NORMAL (130-450,000) (NORMAL); PLATELET MORPHOLOGY NORMAL APPEARANCE (NORMAL); RBC MORPHOLOGY (MULTIPLE) NORMAL APPEARANCE (NORMAL); REACTIVE LYMPHS % (MANUAL) 4 %
[2023-09-13 10:05] LABS: ESTIMATED AVERAGE GLUCOSE 137 mg/dL (70-100); HEMOGLOBIN A1c% 6.4 % (4.27-6.07)
== END 2023-09-13 07:37 | disposition home or self-care (01) ==
LOC: LAB 07:36
PROVIDERS: ATTEND Internal Medicine
DX: I27.81 Cor pulmonale (chronic) (principal); E78.5 Hyperlipidemia, unspecified; E11.9 Type 2 diabetes mellitus without complications; I50.9 Heart failure, unspecified
CPT/HCPCS: 36415; 80053; 80061; 83036; 83721; 83880; 85025

== ENCOUNTER 2023-11-21 07:32 | Emergency (ER) | payer MEDICARE, OTHER ==
--- NOTE | 2023-11-21 07:46 | ED Physician Documentation ---
PD HPI ABD PAIN - Stated complaint Stated Complaint: RT FLANK PX - Chief complaint Chief Complaint: Abd Pain - History obtained from History obtained from: Patient - Additional information Additional information: 77-year-old gentleman with history of CHF, tobacco abuse, COPD on home oxygen, type 2 diabetes, hypertension has developed gradual onset and at times severe right upper quadrant pain without radiation over the last 2 days. Does not worsen with eating. Never had it before. No history of abdominal surgeries. No acute changes in bowel movements but he has had loose stools for the last 6 months. No nausea or vomiting. PD PAST MEDICAL HISTORY - Past Medical History Cardiovascular: Congestive heart failure, Hypertension, High cholesterol, SD Respiratory: COPD, Emphysema, Shortness of breath Neuro: None Endocrine/Autoimmune: Type 2 diabetes GI: None : Benign prostate hypertrophy HEENT: None Psych: None, Depression Musculoskeletal: Osteoarthritis Derm: None - Past Surgical History Past Surgical History: Yes General: Colonoscopy HEENT: Tonsil/Adenoidectomy - Present Medications Home Medications: Ambulatory Orders Medication Instructions Recorded Confirmed Atorvastatin Calcium [Lipitor] 40 mg ORAL DAILY 11/28/16 11/21/23 Niacin [Niaspan] 1 tab ORAL DAILY 11/28/16 11/21/23 lisinopriL [Lisinopril] 1 tab ORAL DAILY 11/28/16 11/21/23 metFORMIN [Glucophage] 1 tab ORAL BID 11/28/16 11/21/23 Finasteride [Proscar] 5 mg PO DAILY 03/15/23 11/21/23 dilTIAZem HCL [Diltiazem 24Hr ER] 120 mg PO DAILY 03/15/23 11/21/23 Potassium Chloride 20 meq PO DAILY #30 tab 03/16/23 11/21/23 Aspirin EC [Ecotrin] 325 mg PO DAILY 11/21/23 11/21/23 Furosemide [Lasix] 20 mg PO BID 11/21/23 11/21/23 HYDROcod/ACETAM 5/325 [[place] 5/325] 1 - 2 tab PO Q6H PRN #15 tablet 11/21/23 Zolpidem Tartrate [Ambien] 10 mg PO HS 11/21/23 11/21/23 - Allergies Allergies/Adverse Reactions: Allergies Allergy/AdvReac Type Severity Reaction Status Date / Time No Known Drug Allergies Allergy Verified 11/21/23 07:45 - Social History Does the pt smoke?: Yes Smoking Status: Current every day smoker Does the pt drink ETOH?: No Does the pt have substance abuse?: No - Immunizations Immunizations are current?: Yes - POLST POLST Status: Full Code PD ED PE NORMAL - Vitals Vital signs reviewed: Yes - General General: Alert and oriented X 3, No acute distress, Other (On oxygen which is his baseline) - Cardiac Cardiac: RRR, No murmur - Respiratory Respiratory: No respiratory distress, Clear bilaterally - Abdomen Abdomen: Other (Tender in the right upper quadrant with positive Hughes sign, no other surgical signs or abdominal tenderness. No shingles rash in that area.) - Back Back: No CVA TTP, No spinal TTP - Derm Derm: Normal color, Warm and dry - Extremities Extremities: No edema, No calf tenderness / cord - Neuro Neuro: Alert and oriented X 3 Results - Vitals Vitals: Vital Signs - 24 hr 11/21/23 11/21/23 11/21/23 07:42 09:05 11:32 Temperature 36.4 C L 36.4 C L 36.6 C Heart Rate 72 75 75 Respiratory 18 16 16 Rate Blood Pressure 158/74 H 144/68 H 146/69 H O2 Saturation 94 94 96 If not protocol 2 2 : Oxygen Flow, liters/minute Oxygen O2 Source Nasal cannula Oxygen Flow Rate 2 - Labs Labs: Laboratory Tests 11/21/23 11/21/23 07:53 07:53 WBC 14.0 H RBC 4.09 L Hgb 13.6 L Hct 40.9 L MCV 100.0 H MCH 33.3 H MCHC 33.3 RDW 14.2 Plt Count 160 MPV 9.4 Neut # (Auto) 7.6 H Lymph # (Auto) 4.9 H [place] # (Auto) 1.2 H Eos # (Auto) 0.2 Baso # (Auto) 0.1 Absolute Nucleated RBC 0.00 Nucleated RBC % 0.0 Sodium 138 Potassium 4.3 Chloride 100 L Carbon Dioxide 31 Anion Gap 7.0 BUN 28 H Creatinine 1.1 Estimated GFR (MDRD) 65 L Glucose 112 H Calcium 9.6 Total Bilirubin 0.6 AST 16 ALT 13 Alkaline Phosphatase 78 Total Protein 6.4 Albumin 4.4 Globulin 2.0 L Albumin/Globulin Ratio 2.2 Lipase 23 - Rads (name of study) Abdominal ultrasound demonstrated normal gallbladder, mild hepatic steatosis, CBD dilated to 8.2 mm and pancreatic ductal dilatation 3.6 mm Relevant Findings:: Final report received, EMP independent interpretation of test CT abdomen pelvis demonstrates prominent biliary and pancreatic ductal dilatation. Relevant Findings:: Final report received, EMP independent interpretation of test MRCP was suggestive but not diagnostic of choledocholithiasis. Also had a mildly ectatic pancreatic duct. Relevant Findings:: Final report received, EMP independent interpretation of test PD Medical Decision Making - ED course ED course: 77-year-old gentleman with the above medical history presents with right upper quadrant pain. Declines pain medication on initial evaluation. Most likely biliary etiology given exam and location. Differential would include vascular issue, or other intra-abdominal emergency. Initial testing demonstrated a white count elevated at 14,000 and mild macrocytic anemia. CMP was grossly unremarkable. Abdominal ultrasound demonstrating some dilatation of both the common and pancreatic ducts. This could be concerning for potentially a pancreatic mass and both MRCP and CT abdomen pelvis were ordered. MRCP was suggestive but not diagnostic of choledocholithiasis. Also had a mildly ectatic pancreatic duct. I do not think he needs follow-up today but he does need expedited follow-up for GI evaluation and likely ERCP. I offered to call around for him to expedite follow-up but he did not want to wait in the department for calls back and requested a call at home, but a call to [employer] was placed at 12:[address] Faye Solano at [facility] @[phone] And his staff will reach out to the patient to schedule. Departure - Departure Disposition: 01 Home, Self Care Clinical Impression: Abdominal pain, Dilated bile duct Condition: Good Record reviewed to determine appropriate education?: Yes Prescriptions: HYDROcod/ACETAM 5/325 [[place] 5/325] 1 - 2 tab PO Q6H PRN #15 tablet PRN Reason: Pain Comments: I [facility] your prescription electronically [facility] the [facility] [address] [address] [facility] [place]. As discussed, after the testing we did today it seems likely that you may have a gallstone in the bile duct. It does not appear to be completely blocking things because if that were to happen, I your labs would show something which they really do not. I am calling the time lock expert on-call in [place] to try to expedite follow-up for you because you may need a procedure called ERCP. Return for any worsening symptoms. I am prescribing a short course of narcotic pain medication for you. These are potentially dangerous and addictive medications that should be used carefully. These medications may constipate you. Take an [id number]-[id number] stool softener (docusate) twice daily with plenty of water while taking these medications. If you go 24 hours without a bowel movement, take [id number] miralax, per package instructions. Do not drink or drive while taking these medications. If you received narcotic or sedating medications while in the emergency department, do not drive for 24 hours. Store this medication in a safe, secure place and out of reach of children. It is a violation of federal law to give or sell this medication to another person or to use in a manner other than prescribed. The ED will not refill narcotic prescriptions, including prescriptions lost or stolen. To dispose of unwanted medications: 1. [facility] provides a drop box for medication in pill form only (no liquids) 8:00 am to 4:30 p.m. Monday-Monday in the lobby of the [facility], [address] [place] [address]. Empty pills into ziplock bag before disposal. Call [phone] for information. 2.[employer] is a free service available to all [facility] residents. Go to [email or web address] Note that many narcotic pain relievers also contain Tylenol/acetaminophen. Please ensure that your total dose of acetaminophen from all sources does not exceed 3 g (3000 mg) per day. Forms: PCP List Discharge Date/Time: 11/21/23 12:17
[2023-11-21 08:03] LABS: BASOPHILS # (AUTO) 0.1 10^3/uL (0.0-0.1); BASOPHILS % (AUTO) 0.6 %; EOSINOPHILS # (AUTO) 0.2 10^3/uL (0.0-0.7); EOSINOPHILS % (AUTO) 1.4 %; HCT - HEMATOCRIT 40.9 % (42.0-52.0); HGB - HEMOGLOBIN 13.6 g/dL (14.0-18.0); LYMPHOCYTES # (AUTO) 4.9 10^3/uL (1.5-3.5); LYMPHOCYTES % (AUTO) 35.2 %; MEAN CORPUSCULAR HEMOGLOBIN 33.3 pg (27.0-31.0); MEAN CORPUSCULAR HGB CONC 33.3 g/dL (32.0-36.0); MEAN PLATELET VOLUME 9.4 fL (7.4-11.4); MONOCYTES # (AUTO) 1.2 10^3/uL (0.0-1.0); MONOCYTES % (AUTO) 8.3 %; NEUTROPHILS # (AUTO) 7.6 10^3/uL (1.5-6.6); NEUTROPHILS % (AUTO) 54.1 %; PLT - PLATELET COUNT 160 10^3/uL (130-450); RED BLOOD COUNT 4.09 10^6/uL (4.70-6.10); RED CELL DISTRIBUTION WIDTH 14.2 % (12.0-15.0)
[2023-11-21 08:12] LABS: ALBUMIN 4.4 g/dL (3.2-5.5); ALBUMIN/GLOBULIN RATIO 2.2 (1.0-2.2); BILIRUBIN,TOTAL 0.6 mg/dL (0.2-1.0); CALCIUM 9.6 mg/dL (8.5-10.3); CREATININE 1.1 mg/dL (0.6-1.3); POTASSIUM 4.3 mmol/L (3.5-4.5); TOTAL PROTEIN 6.4 g/dL (6.4-8.9)
--- NOTE | 2023-11-21 09:10 | Ultrasound Report ---
PROCEDURE: Abdomen Limited INDICATIONS: RUQ pain TECHNIQUE: Real-time focused scanning was performed of the abdomen, with image documentation. COMPARISONS: None. FINDINGS: Liver: Liver is normal in size and increased in echogenicity. Multiple hepatic cysts with the larges t measuring up to 4.3 cm.. Gallbladder: No gallstones, sludge, wall thickening or pericholecystic edema. Biliary ducts: Intrahepatic bile ducts are non-dilated. Extrahepatic bile duct caliber measures 8.2 mm. The distal common bile duct measures 5 mm. Normal is 6-7 mm or less in diameter, or 10 mm or le ss post-cholecystectomy. Pancreas: The pancreatic duct at the head of the pancreas measures 3.6 mm. Otherwise, the pancreas i s not well seen. Right kidney: Limited evaluation of the right kidney. Normal in size and echotexture. Right kidney m easures 10.5 cm long. No hydronephrosis or nephrolithiasis. No solid masses. No complex renal cystic lesions which require follow-up. Superior pole simple cyst measuring up to 4.6 cm. IVC: Intrahepatic inferior vena cava is patent. Miscellaneous: No free abdominal fluid. IMPRESSION: 1.No gallstones. Gallbladder is normal in appearance. 2.Mild hepatic steatosis. 3.Mild dilatation of the common bile duct measuring up to 8.2 mm. The common bile duct measures 5 mm distally. 4.Minimal dilatation of the proximal pancreatic duct measuring up to 3.6 mm. Reviewed by: All Bullard MD on 11/21/2023 9:09 AM PDT Approved by: All Bullard MD on 11/21/2023 9:09 AM PDT Station ID: [id number]
[2023-11-21] MEDS ORDERED: iohexoL-300 100 ML VIAL ONE (09:43)
[2023-11-21] MEDS ORDERED: GADOTERATE MEGLUMINE 7.5 MMOL/15 ML VIAL ONE (09:50)
--- NOTE | 2023-11-21 10:22 | CT Report ---
PROCEDURE: Abdomen/Pelvis W INDICATIONS: IV only, abd pain ruq CONTRAST: Omni 300 100ml TECHNIQUE: After the administration of intravenous contrast, a CT scan of the abdomen and pelvis was performed. Images were recorded and evaluated at appropriate window settings. Reformats: coronal and sagittal. F or radiation dose reduction, the following was used: automated exposure control, adjustment of mA and /or kV according to patient size. COMPARISON: same-day ultrasound FINDINGS: Image quality: Diagnostic Lower chest: Basal atelectasis and reticulation. This is progressed from 2014. Annular and coronary calcifications. Heart size is at the upper lateral normal Liver: Suspected liver cysts are present. Subcentimeter lesions are too small to characterize, probab ly also cysts Gallbladder and biliary system: Gallbladder is better assessed on ultrasound. Appearance of a septati on in the middle portion of the gallbladder may represent a fold, no abnormality identified on ultras ound. Prominent biliary system, with the CHD and CBD measuring 6 to 7 mm. Pancreas: Prominent pancreatic duct measuring 3 to 4 mm at the head. There is no discrete mass. Proba ble duodenal diverticulum is seen at the ampulla. Spleen: Nonenlarged Adrenals: No discrete nodules Kidneys: No solid mass or hydronephrosis Vessels and lymph nodes: The main portal vein is patent. Atherosclerotic calcifications. No abdominal aortic aneurysm. No pathologic lymph nodes by size criteria. Bowel and peritoneum: No evidence of small bowel obstruction. Fecal loading is moderate. Extensive co lonic diverticular disease. Body wall: Unremarkable Pelvis: Bladder is unremarkable. The prostate is heterogeneous and not well assessed on this study. Bones: No acute or suspicious osseous finding. There are degenerative changes. Indeterminate nonaggre ssive appearing small sclerotic region in the left superior pubic ring. IMPRESSION: Prominent biliary system and pancreatic duct, also seen on ultrasound. No discrete mass is identified on CT. Close attention on follow-up is suggested, versus further evaluation with MRI. A periampullary duodenal diverticulum is present, incidentally noted. Appearance of a septation within the middle of the gallbladder may represent a fold. No significant a bnormality was identified on recent ultrasound. Reviewed by: Raghav Lai MD on 11/21/2023 10:20 AM PDT Approved by: Raghav Lai MD on 11/21/2023 10:20 AM PDT Station ID: [id number]
[2023-11-21] MEDS: GADOTERATE MEGLUMINE 7.5 MMOL/15 ML VIAL IVP ONE (11:00)
[2023-11-21 11:39] VITALS: BP 146/69; O2SAT 96
[2023-11-21] MEDS: HYDROmorphone 1 MG/ML CARPUJECT IVP STA (11:43)
--- NOTE | 2023-11-21 11:57 | MRI Report ---
PROCEDURE: MRCP W/WO INDICATIONS: ruq pain, abn sono CONTRAST: Clariscan 12.8ml TECHNIQUE: Coronal ultra fast SE through the abdomen, axial 2-D spoiled GE in- and [id number], and breath-hold T2 FSE with fat saturation through the biliary system and pancreas. Oblique coronal and axial thin- slice ultra fast SE, radial thick-slab ultra fast SE centered on the extrahepatic bile ducts. COMPARISON: Same-day CT, ultrasound FINDINGS: Image quality: Motion degraded Lower chest: No basal effusions. Liver: There are multiple liver cysts. No definite solid hepatic mass on this motion degraded imaging Gallbladder and biliary system: Borderline dilated CBD at 8 mm on this study. There may be internal f illing defect, for example image 2/14. A cystic lesion is identified in the region of the pancreatic head, favored to represent a duodenal diverticulum, as internal gas was seen on recent CT. Pancreas: Mildly ectatic pancreatic duct at 3 to 4 mm. Spleen: Nonenlarged Adrenals: No discrete nodules Kidneys: No solid mass or hydronephrosis Vessels and lymph nodes: No pathologic lymph nodes by size criteria. The main portal vein appears pat ent. No abdominal aortic aneurysm. Bowel and peritoneum: Moderate to large fecal loading. Colonic diverticula. No small bowel obstructio n Body wall: Unremarkable Bones: There are degenerative changes. IMPRESSION: Motion degraded MRI. Mildly dilated CBD with possible internal filling defects which may represent ch oledocholithiasis (for example image 2/14), no definite gallbladder stones however were seen on ultra sound or on this MRI. Cystic lesion at the head of the pancreas likely contains gas on same-day CT, favored to represent a duodenal diverticulum. Mildly ectatic pancreatic duct is also seen, without discrete obstructing mass. Attention on follow-u p imaging is suggested. Other findings as above. Reviewed by: Raghav Lai MD on 11/21/2023 11:56 AM PDT Approved by: Raghav Lai MD on 11/21/2023 11:56 AM PDT Station ID: [id number]
[2023-11-21] MEDS: iohexoL-300 100 ML VIAL IVP ONE (13:21)
== END 2023-11-21 12:17 | disposition home or self-care (01) ==
LOC: ED 07:32
DX: R10.11 Right upper quadrant pain (principal); I11.0 Hypertensive heart disease with heart failure; I50.9 Heart failure, unspecified; J43.9 Emphysema, unspecified; E11.9 Type 2 diabetes mellitus without complications; F17.200 Nicotine dependence, unspecified, uncomplicated; E78.00 Pure hypercholesterolemia, unspecified; I25.2 Old myocardial infarction; N40.0 Benign prostatic hyperplasia without lower urinary tract symptoms; Z99.81 Dependence on supplemental oxygen; Z79.84 Long term (current) use of oral hypoglycemic drugs; Z79.899 Other long term (current) drug therapy
CPT/HCPCS: 36415; 74177; 74183; 76705; 80053; 83690; 85025; 96374; 99284; J1170; Q9967